=== PATIENT | male | born 2000 | race Caucasian/White ===

== ENCOUNTER 2020-10-03 02:17 | Emergency (ER) | payer OTHER ==
--- OUTSIDE RECORDS SUMMARY | 2020-10-03 02:19 | XMS REPORT | Continuity of Care Document ---
:2000 Author Organization [facility] t Address [address] [place] [address] Care Team Providers Name Role Phone Provider, Urgent Care Attending Clinician Unavailable Doctor Unassigned, Name Attending Clinician Unavailable Lab, Fam Pob I Attending Clinician Unavailable Anene INVENTORY CONTROLLER Attending Clinician Pob1, Care Clinic Attending Clinician Unavailable Problems This patient has no known problems. Allergies, Adverse Reactions, Alerts This patient has no known allergies or adverse reactions. Medications This patient has no known medications. Procedures This patient has no known procedures. Encounters Start End Encounter Admission Attending Care Care Encounter Source Date/Time Date/Time Type Type Clinicians Facility Department ID 2020-07-16 2020-07-16 Urgent Provider, [facility] [id number] 12:11:38 13:01:19 Care [facility] [id number] Care [place] [id number] Professio [phone] nal [address] 2020-07-16 2020-07-16 Orders Doctor ZULEMA [id number] 00:00:00 00:00:00 Only Unassigned, STEPHANY [id number] [employer] [id number] 2020-06-10 2020-06-10 Laboratory Lab, [facility] [id number] 09:51:59 10:11:59 Only Fam Pob I Health [id number] [place] [phone] [facility] Office [address] One 2019-11-21 2019-11-21 Telephone Mable [facility] [id number] 00:00:00 00:00:00 [facility] [id number] [place] [id number] Professio [phone] nal [address] 2019-11-20 2019-11-20 Urgent Provider, [facility] [id number] 09:12:16 10:31:36 [facility] [id number] Care [place] [phone] [facility] Office [address] 2019-11-20 2019-11-20 [employer] Machine Tender Lab, [facility] [id number] 10:07:37 10:22:37 Visit Fam Pob I Health [id number] [place] [phone] [facility] Office [address] One 2019-11-20 2019-11-20 Letter Mable [facility] [id number] 00:00:00 00:00:00 (Out) [facility] [id number] [place] [phone] [facility] [address] One 2019-06-21 2019-06-21 Urgent Pob1, Acute [facility] [id number] 16:52:25 17:06:51 Care [facility] [id number] [place] [id number] Professio [phone] [place] [address] [address] Results This patient has no known results.
[2020-10-03 06:42] LABS: Barbiturates NEGATIVE (NEGATIVE); Benzodiazepines NEGATIVE (NEGATIVE); Cocaine NEGATIVE (NEGATIVE); METHAMPHETAM NEGATIVE (NEGATIVE); Methadone NEGATIVE (NEGATIVE); Opiates NEGATIVE (NEGATIVE); Phencyclidine NEGATIVE (NEGATIVE); THC Cannibis POSITIVE (NEGATIVE)
--- NOTE | 2020-10-03 07:09 | EDPHYS ---
Physician Documentation [facility] Name: Cuba Artis Age: 20 yrs Sex: Male : 2000 Arrival Date: 10/03/2020 Time: 02: Bed 9 Private MD: ED Physician Ravi Maldonado HPI: 10/03 05:57 This 20 yrs old Male presents to ER via Ambulatory with complaints of Seizure.pkl 05:57 The patient presents after having a single isolated seizure, that lasted 2 minute(s), pkl the episode(s) was witnessed, by a significant other. Character of seizure(s): Loss of consciousness: the patient did not lose consciousness, Motor activity: generalized. Historical: - Allergies: 02:39 SHELLFISH; wg 02:39 shrimp; wg - Home Meds: 02:39 None [Active]; wg - PMHx: 02:39 ADD/ADHD; Seizure; wg - Immunization history:: Adult Immunizations Client reports having NOT received the Covid vaccine. - Social history:: Smoking status: Patient reports the use of cigarette tobacco products, denies chronic smoking, but will smoke occasionally, Reported history of juuling and/or vaping. Patient uses alcohol, only on a social basis. caffeine, Patient/guardian denies using street drugs, IV drugs, The patient lives with spouse, No barriers to communication noted. - Family history:: not pertinent. - Code Status:: Full code. - History obtained from: significant other. - Coronavirus screen:: The patient has NOT traveled to [place] in the past 14 days. The patient has NOT had contact with known/suspected case of Coronavirus?. - Ebola Screening: : Patient negative for fever greater than or equal to 101.5 degrees Fahrenheit, and additional compatible Ebola Virus Disease symptoms Patient denies exposure to infectious person Patient denies travel to an Ebola-affected area in the 21 days before illness onset No symptoms or risks identified at this time. ROS: 05:57 Eyes: Negative for injury, pain, redness, and discharge, ENT: Negative for injury, pkl pain, and discharge, Neck: Negative for injury, pain, and swelling, Cardiovascular: Negative for chest pain, palpitations, and edema, Respiratory: Negative for shortness of breath, cough, wheezing, and pleuritic chest pain, Abdomen/GI: Negative for abdominal pain, nausea, vomiting, diarrhea, and constipation, Back: Negative for injury and pain, : Negative for injury, bleeding, discharge, and swelling, MS/Extremity: Negative for injury and deformity, Skin: Negative for injury, rash, and discoloration. 05:57 Neuro: Positive for seizure activity. Exam: 05:57 Head/Face: Normocephalic, atraumatic. Eyes: Pupils equal round and reactive to light, pkl extra-ocular motions intact. Lids and lashes normal. Conjunctiva and sclera are non-icteric and not injected. Cornea within normal limits. Periorbital areas with no swelling, redness, or edema. ENT: Nares patent. No nasal discharge, no septal abnormalities noted. Tympanic membranes are normal and external auditory canals are clear. Oropharynx with no redness, swelling, or masses, exudates, or evidence of obstruction, uvula midline. Mucous membranes moist. Neck: Trachea midline, no thyromegaly or masses palpated, and no cervical lymphadenopathy. Supple, full range of motion without nuchal rigidity, or vertebral point tenderness. No Meningismus. Chest/axilla: Normal chest wall appearance and motion. Nontender with no deformity. No lesions are appreciated. Cardiovascular: Regular rate and rhythm with a normal S1 and S2. No gallops, murmurs, or rubs. Normal PMI, no JVD. No pulse deficits. Respiratory: Lungs have equal breath sounds bilaterally, clear to auscultation and percussion. No rales, rhonchi or wheezes noted. No increased work of breathing, no retractions or nasal flaring. Abdomen/GI: Soft, non-tender, with normal bowel sounds. No distension or tympany. No guarding or rebound. No evidence of tenderness throughout. Back: No spinal tenderness. No costovertebral tenderness. Full range of motion. Skin: Warm, dry with normal turgor. Normal color with no rashes, no lesions, and no evidence of cellulitis. MS/ Extremity: Pulses equal, no cyanosis. Neurovascular intact. Full, normal range of motion. Neuro: Awake and alert, GCS 15, oriented to person, place, time, and situation. Cranial nerves II-XII grossly intact. Motor strength 5/5 in all extremities. Sensory grossly intact. Cerebellar exam normal. Normal gait. Vital Signs: 02:32 BP 140 / 82; Pulse 88; Resp 18; Temp 98.1; Pulse Ox 100% on R/A; Weight 86.18 kg; wg Height 5 ft. 8 in. (172.72 cm); Pain 0/10; 06:14 BP 159 / 90; Pulse 86; Resp 18; Pulse Ox 99% ; Pain 0/10; sh9 02:32 Body Mass Index 28.89 (86.18 kg, 172.72 cm) wg Ritesh Coma Score: 02:39 Eye Response: spontaneous(4). Verbal Response: oriented(5). Motor Response: obeys wg commands(6). Total: 15. MDM: 05:23 Patient medically screened. pkl 07:05 Data reviewed: vital signs, nurses notes, lab test result(s), radiologic studies, CT pkl scan. ED course: Discussed lab and CT Scan results with patient. Advised to follow up Dr. Cross ( Neurologist ) in 2 to 3 days. Patient understood instructions. 10/03 05:32 Order name: UDS; Complete Time: 07:05 pkl 10/03 05:32 Order name: ETOH Level; Complete Time: 07:05 pkl 10/03 05:32 Order name: CT Head Brain wo Cont pkl Administered Medications: No medications were administered Disposition Summary: 10/03/20 07:08 Discharge Ordered Location: Home pkl Problem: new pkl Symptoms: have improved pkl Condition: Stable pkl Diagnosis - Seizures pkl Followup: pkl - With: Ha Cross MD - When: 2 - 3 days - Reason: Re-evaluation by your physician Discharge Instructions: - Discharge Summary Sheet pkl Forms: - Work release form pkl - Medication Reconciliation Form pkl - Thank You Letter pkl - Antibiotic Education pkl - Prescription Opioid Use pkl Signatures: Dispatcher [employer] EDRavi Clark MD MD pkl Chip Wynne wg
--- NOTE | 2020-10-03 07:09 | ER ---
Nurse's Notes [facility] Name: Cuba Artis Age: 20 yrs Sex: Male : 2000 Arrival Date: 10/03/2020 Time: : Bed 9 Private MD: Diagnosis: Seizures Presentation: 10/03 02:32 Chief complaint: Patient states: Pt and significant other state pt had a seizure around wg 0045. Described as tonic/clonic lasting about 2 mins. Pt has had one seizure in the past that he states was drug related. Pt states he has been drinking several [employer] drinks per day and last one was at 2200. Pt's significant other states they called EMS and pt was evaluated but refused transport. Pt states he feels well other than some slight nausea and concern as to the reason for the seizure. Pt denies losing continence of bowel or bladder. Pt denies any illegal substance abuse other than marijuana/vape daily. Coronavirus screen: Client denies travel out of the [place] in the last 14 days. At this time, the client does not indicate any symptoms associated with coronavirus-19. Ebola Screen: Patient negative for fever greater than or equal to 101.5 degrees Fahrenheit, and additional compatible Ebola Virus Disease symptoms Patient denies exposure to infectious person. Patient denies travel to an Ebola-affected area in the 21 days before illness onset. No symptoms or risks identified at this time. Initial Sepsis Screen: Does the patient meet any 2 criteria? No. Patient's initial sepsis screen is negative. Does the patient have a suspected source of infection? No. Patient's initial sepsis screen is negative. Risk Assessment: Do you want to hurt yourself or someone else? Patient reports no desire to harm self or others. Onset of symptoms was October 03, 2020 at 00:45. Care prior to arrival: None. Activity prior to arrival: seizure. 02:32 Method Of Arrival: Ambulatory 02:32 Acuity: DEAN 3 wg Triage Assessment: 02:39 General: Appears in no apparent distress. comfortable, Behavior is calm, cooperative, wg appropriate for age. Pain: Denies pain. EENT: No deficits noted. Neuro: No deficits noted. Cardiovascular: No deficits noted. Respiratory: No deficits noted. GI: No deficits noted. : No deficits noted. Derm: No deficits noted. Musculoskeletal: No deficits noted. Historical: - Allergies: 02:39 SHELLFISH; wg 02:39 shrimp; wg - Home Meds: 02:39 None [Active]; wg - PMHx: 02:39 ADD/ADHD; Seizure; wg - Immunization history:: Adult Immunizations Client reports having NOT received the Covid vaccine. - Social history:: Smoking status: Patient reports the use of cigarette tobacco products, denies chronic smoking, but will smoke occasionally, Reported history of juuling and/or vaping. Patient uses alcohol, only on a social basis. caffeine, Patient/guardian denies using street drugs, IV drugs, The patient lives with spouse, No barriers to communication noted. - Family history:: not pertinent. - Code Status:: Full code. - History obtained from: significant other. - Coronavirus screen:: The patient has NOT traveled to [place] in the past 14 days. The patient has NOT had contact with known/suspected case of Coronavirus?. - Ebola Screening: : Patient negative for fever greater than or equal to 101.5 degrees Fahrenheit, and additional compatible Ebola Virus Disease symptoms Patient denies exposure to infectious person Patient denies travel to an Ebola-affected area in the 21 days before illness onset No symptoms or risks identified at this time. Screenin:17 Abuse screen: Denies threats or abuse. Denies injuries from another. Nutritional sh9 screening: No deficits noted. Tuberculosis screening: No symptoms or risk factors identified. Fall Risk None identified. Assessment: 06:15 General: Appears in no apparent distress. Behavior is calm, cooperative. Pain: Denies sh9 pain. Neuro: No deficits noted. Seizure activity reported prior to arrival. Type of seizure: tonic-clonic seizure. Seizure lasted approximately 2 minutes. Cardiovascular: No deficits noted. Cardiovascular: Denies chest pain. Respiratory: No deficits noted. GI: No deficits noted. : No deficits noted. EENT: No deficits noted. Derm: No deficits noted. Musculoskeletal: No deficits noted. Vital Signs: 02:32 BP 140 / 82; Pulse 88; Resp 18; Temp 98.1; Pulse Ox 100% on R/A; Weight 86.18 kg; wg Height 5 ft. 8 in. (172.72 cm); Pain 0/10; 06:14 BP 159 / 90; Pulse 86; Resp 18; Pulse Ox 99% ; Pain 0/10; sh9 02:32 Body Mass Index 28.89 (86.18 kg, 172.72 cm) Randolph Coma Score: 02:39 Eye Response: spontaneous(4). Verbal Response: oriented(5). Motor Response: obeys commands(6). Total: 15. ED Course: 02:22 Patient arrived in ED. bp1 02:39 Triage completed. wg 02:39 Arm band placed on left wrist. wg 05:23 Ravi Maldonado MD is Attending Physician. pkl 05:47 Tiffanie Arias, RN is Primary Nurse. sh9 06:03 CT Head Brain wo Cont In Process Unspecified. EDMS 06:14 ETOH Level Sent. sh9 06:17 Patient has correct armband on for positive identification. Bed in low position. Call 9 light in reach. 06:17 Seizure precautions initiated. sh9 07:08 Ha Cross MD is Referral Physician. pkl 07:36 No provider procedures requiring assistance completed. IV discontinued, intact, jl7 bleeding controlled, No redness/swelling at site. Pressure dressing applied. Administered Medications: No medications were administered Outcome: 07:08 Discharge ordered by . pkl 07:36 Discharged to home ambulatory. jl7 07:36 Condition: stable 07:36 Discharge instructions given to patient, significant other, Instructed on discharge instructions, follow up and referral plans. Demonstrated understanding of instructions, follow-up care. 07:37 Patient left the ED. jl7 Signatures: Dispatcher [employer] EDMS Ravi Maldonado MD MD pkTai Duque RN RN jl7 Janine Mireles bp1 Tiffanie Arias RN RN sh9 Chip Wynne
[2020-10-03 07:42] VITALS: TEMP 98.1
[2020-10-03 07:43] VITALS: BP 159/90; O2SAT 99
--- NOTE | 2020-10-03 10:46 | RAD REPORT ---
EXAM DESCRIPTION: CT Head Without Intravenous Contrast CLINICAL HISTORY: The patient is 20 years old and is Male; SEIZURE TECHNIQUE: Axial computed tomography images of the head/brain without intravenous contrast. Sagitt al and coronal reformatted images were created and reviewed. This CT exam was performed using one o r more of the following dose reduction techniques: automated exposure control, adjustment of the mA and/or kV according to patient size, and/or use of iterative reconstruction technique. COMPARISON: No relevant prior studies available. FINDINGS: Brain: Unremarkable. No hemorrhage. No significant white matter disease. No edema. Ventricles: Unremarkable. No ventriculomegaly. Bones/joints: Unremarkable. No acute fracture. Soft tissues: Unremarkable. Sinuses: Unremarkable as visualized. Mastoid air cells: Unremarkable as visualized. No mastoid effusion. IMPRESSION: No acute intracranial abnormality. Electronically signed by: Ignacio Rivas MD 10/03/2020 6:16 AM CDT Due to temporary technical issues with the PACS/Fluency reporting system, reports are being signed by the in house radiologist without review as a courtesy to ensure prompt reporting. The interpreting r adiologist is fully responsible for the content of the report.
== END 2020-10-03 07:37 | disposition home or self-care (01) ==
LOC: ER 02:17
DX: R56.9 Unspecified convulsions (principal); F17.210 Nicotine dependence, cigarettes, uncomplicated; Z91.013 Allergy to seafood
CPT/HCPCS: 36415; 70450; 80307; 80320; 99283

== ENCOUNTER 2021-08-31 10:39 | Emergency (ER) | payer OTHER, SELFPAY ==
--- OUTSIDE RECORDS SUMMARY | 2021-08-31 10:42 | XMS REPORT | Continuity of Care Document ---
:2000 Author Organization [facility] t Address [address] [place] [address] [address] [place] [address] Care Team Providers Name Role Phone CELENA, A Primary Care Physician Unavailable ROSIBEL Attending Clinician Unavailable Rosibel HOPPER Attending Clinician MORA Attending Clinician Unavailable Provider, Urgent Care Attending Clinician Unavailable Doctor Unassigned, Name Attending Clinician Unavailable Lab, Fam Pob I Attending Clinician Unavailable Anene LEAD CAREGIVER Attending Clinician Pob1, Care Clinic Attending Clinician Unavailable MORA Admitting Clinician Unavailable Payers Payer Name Policy Type Policy Number Effective Date Expiration Date [facility] [id number] 2019 PPO/POS 00:00:00 [facility] [id number] 2021 00:00:00 Problems Condition Condition Condition Status Onset Resolution Last Treating Co mments Source Name Details Category Date Date Treatment Clinician Date NSTEMI NSTEMI Disease Active Univers (non-ST (non-ST 3-08 ity of elevated elevated 00:00: [place] myocardial myocardial 00 Me dical infarction infarction Br anch ) ) Perianal Perianal Disease Active 2020-02 Unive rs abscess abscess 2-10 ity of 00:00: [place] [address] Medical Branch Obesity Obesity Disease Active 2020-02 Univers (BMI (BMI 2-10 ity of 30-39.9) 30-39.9) 00:00: [place] [address] Medical Branch Attention Attention Disease Active Overview: Univers deficit deficit 3-01 Formattin ity o f hyperactiv hyperactiv 00:00: g of this [place] ity ity 00 note Medical disorder disorder might be Bran ch (ADHD) (ADHD) different from the original. ICD10 Diagnosis Term Chief Load Dispatcher Utility Allergies, Adverse Reactions, Alerts Allergy Allergy Status Severity Reaction(s) Onset Inactive Treating Comm ents Source Name Type Date Date Clinician Stephaniefis Drug Active Rash 2020-02 Univers h Allergy 2-20 ity of Derived 00:00: [address] Branch SHELLFIS DRUG Active Rash 2020-02 Univers H INGREDI 2-20 ity of DERIVED 00:00: [address] Social History Social Habit Start Date Stop Date Quantity Comments Source History of tobacco Cigarette Smoker University of use [facility] History SDOH University o f Alcohol Frequency Formerly [facility] Branch History SDOH University o f Alcohol Std Drinks [facility] History SDPA University o f Alcohol Binge [facility] Exposure to 2021-05-30 2021-06-09 Not sure University SARS-CoV-2 (event) 00:00:00 11:17:00 [facility] Alcohol intake 2021-06-09 2021-06-09 Current drinker Unive rsity of 00:00:00 00:00:00 of alcohol [facility] (finding) [place] Alcohol Comment 2020-11-06 2020-11-06 once per month Unive rsity of 00:00:00 00:00:00 [facility] Tobacco use and 2019-06-21 2019-06-21 Never used Universit y of exposure 00:00:00 00:00:00 [facility] Cigarettes smoked 2019-06-21 2019-06-21 Univers ity of current (pack per 00:00:00 00:00:00 [facility] ) - Reported Branch Cigarette 2019-06-21 2019-06-21 University of pack-years 00:00:00 00:00:00 [facility] Sex Ass[birth year] At [birth year] Universit y of 00:00:00 00:00:00 [facility] Smoking Status Start Date Stop Date Source Current every day smoker 2019-06-21 00:00:00 Uni versity of [facility] Medications Ordered Filled Start Stop Current Ordering Indication Dosage Frequency Signature Comments Components Source Medication Medication Date Date Medication? Clinician (SIG) Name Name OXcarbazepi Yes [id number] 600mg Take 2 Univers ne 300 mg 5-02 tablets by ity of tablet 00:00: mouth 2 [place] 00 (two) Medical times [place] daily. OXcarbazepi 2021-0 2021- No 600mg Take 2 Un malina ne 300 mg 4-26 05-02 tablets by ity of tablet 00:00: 00:00 mouth 2 [place] 00 :00 (two) Medical times [place] daily. Immunizations Ordered Immunization Filled Immunization Date Status Commen ts Source Name Name Meningococcal B, 2016-01-28 Completed Universi ty of Recombinant 00:00:00 [facility] Influenza Virus 2016-01-28 Completed Universit y of Vaccine Quad IM 3+ 00:00:00 [facility] Meningococcal B, 2015-08-06 Completed Universi ty of Recombinant 00:00:00 [facility] Meningococcal B, 2015-05-16 Completed Universi ty of Recombinant 00:00:00 [facility] Meningococcal 2014-10-25 Completed University of Polysaccharide 00:00:00 [place] [facility] (groups A, C, Y and Branc h W-135) conjugate vaccine (MCV4P) Influenza Virus 2013-11-20 Completed Universit y of Vaccine Quad Nasal 00:00:00 [facility] HPV 2012-07-14 Completed University of 00:00:00 [facility] Influenza Virus 2012-02-23 Completed Universit y of Vaccine (3+ yrs) 00:00:00 [facility] dical Branch HPV 2012-02-23 Completed University of 00:00:00 [facility] HPV 2011 Completed University of 00:00:00 [facility] TDAP 2009-08-06 Completed University of 00:00:00 [facility] Meningococcal 2009-08-06 Completed University of Polysaccharide 00:00:00 [place] [facility] (groups A, C, Y and Branc h W-135) conjugate vaccine (MCV4P) HEPATITIS A 2009-08-06 Completed University of 00:00:00 [facility] HEPATITIS A 2007-05-04 Completed University of 00:00:00 [facility] Varicella 2007-05-04 Completed University of (varivax)(chicken 00:00:00 [place] [facility] pox) Branch DTAP 2002-09-04 Completed University of 00:00:00 [facility] MMR 2002-09-04 Completed University of 00:00:00 [place] [facility] Polio (IPV/OPV) 2002-09-04 Completed Universit y of 00:00:00 [facility] IPV 2002-09-04 Completed University of 00:00:00 [facility] DTAP 1999-12-09 Completed University of 00:00:00 [facility] HIB 4 Dose Schedule 1999-12-09 Completed Unive rsity of 00:00:00 [facility] MMR 1999-08-11 Completed University of 00:00:00 [facility] Varicella 1999-08-11 Completed University of (varivax)(chicken 00:00:00 [facility] edical pox) Branch Hep B, Adol or Pedi 1999-05-05 Completed Unive rsity of Dosage 00:00:00 [facility] Polio (IPV/OPV) 1999-05-05 Completed Universit y of 00:00:00 [facility] IPV 1999-05-05 Completed University of 00:00:00 [facility] DTAP 1999-02-18 Completed University of 00:00:00 [facility] HIB 4 Dose Schedule 1999-02-18 Completed Unive rsity of 00:00:00 [facility] Hep B, Adol or Pedi 1999-02-18 Completed Unive rsity of Dosage 00:00:00 [facility] DTAP 1998 Completed University of 00:00:00 [facility] HIB 4 Dose Schedule 1998 Completed Unive rsity of 00:00:00 [facility] Polio (IPV/OPV) 1998 Completed Universit y of 00:00:00 [facility] IPV 1998 Completed University of 00:00:00 [facility] Polio (IPV/OPV) 1998 Completed Universit y of 00:00:00 [facility] IPV 1998 Completed University of 00:00:00 [facility] DTAP 1998 Completed University of 00:00:00 [facility] HIB 4 Dose Schedule 1998 Completed Unive rsity of 00:00:00 [facility] Hep B, Adol or Pedi 1998 Completed Unive rsity of Dosage 00:00:00 [facility] Vital Signs Vital Name Observation Time Observation Value Comments Source Systolic blood 2021-06-09 16:37:00 125 mm[Hg] Univer sity of pressure [facility] Diastolic blood 2021-06-09 16:37:00 79 mm[Hg] Unive rsity of pressure [facility] Heart rate 2021-06-09 16:37:00 94 /min [facility] Body temperature 2021-06-09 16:37:00 37 [place] Univ ersity of [facility] Body height 2021-06-09 16:37:00 172.7 cm [facility] Body weight 2021-06-09 16:37:00 91.309 kg [facility] BMI 2021-06-09 16:37:00 30.61 kg/m2 [facility] Oxygen saturation in 2021-06-09 16:37:00 97 /min [facility] Arterial blood by [facility] Pulse oximetry Branch Procedures This patient has no known procedures. Encounters Start End Encounter Admission Attending Care Care Encounter Source Date/Time Date/Time Type Type Clinicians Facility Department ID 2021-09-15 2021-09-15 Outpatient Sharon AMAYA [facility] [id number] Univers 14:30:00 14:30:00 [facility] [id number] [facility] 2021-09-15 2021-09-15 [id number] Univers 14:30:00 14:30:00 [facility] 2021-08-25 2021-08-25 Outpatient Sharon A[facility] [id number] Univers 14:30:00 14:30:00 [facility] [id number] [facility] 2021-06-09 2021-06-09 Outpatient Sharon AMAYA [facility] [id number] Univers 12:15:00 12:20:26 [facility] 2021-06-09 2021-06-09 [facility] [id number] Univers 11:30:00 12:12:58 Visit [facility] [id number] ity of CLEAR [id number] Jb HERRON [id number] [facility] 092 Branch OFFICE BUILDING 2021-04-15 2021-04-15 Outpatient U MORGAN [facility] [id number] Univers 09:15:00 19:14:00 BRANDAN hallie [facility] 2020-07-16 2020-07-16 Urgent Provider, [facility] [id number] 12:11:38 13:01:19 [facility] [id number] Care [place] [id number] Professio [phone] [place] [address] Office Building One 2020-07-16 2020-07-16 Orders Doctor ZULEMA [id number] 00:00:00 00:00:00 Only Unassigned, STEPHANY [id number] [facility] [id number] 2020-06-10 2020-06-10 Laboratory Lab, [facility] [id number] 09:51:59 10:11:59 Only Fam Pob I Health [id number] [place] [id number] Professio [phone] [place] [address] Office [address] One 2019-11-21 2019-11-21 Telephone [facility] [id number] 00:00:00 00:00:00 [facility] [id number] [place] [id number] Professio [phone] [place] [address] Office [address] One 2019-11-20 2019-11-20 Urgent Provider, [facility] [id number] 09:12:16 10:31:36 [facility] [id number] Care [place] [id number] Professio [phone] [place] [address] Office [address] One 2019-11-20 2019-11-20 Rental Representative Lab, [facility] [id number] 10:07:37 10:22:37 Visit Fam Pob I Health [id number] [place] [id number] Professio [phone] [place] [address] Office Building One 2019-11-20 2019-11-20 [facility] [id number] 00:00:00 00:00:00 (Out) [facility] [id number] [place] [id number] Professio [phone] [place] 044 Office [facility] 2019-06-21 2019-06-21 Urgent Pob1, Acute [facility] [id number] 16:52:25 17:06:51 [facility] [id number] [place] [id number] Professio [phone] [place] 044 Office Building One Results This patient has no known results.
--- NOTE | 2021-08-31 11:08 | RAD REPORT ---
EXAM DESCRIPTION: RAD - Knee Left 3 View - 08/31/2021 11:02 am CLINICAL HISTORY: PAIN COMPARISON: No comparisons FINDINGS: No acute fracture. No malalignment. No significant focal degenerative changes. IMPRESSION: No acute osseous abnormality involving the left knee.
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
--- NOTE | 2021-08-31 12:45 | ER ---
Nurse's Notes [facility] Name: Cuba Artis Age: 21 yrs Sex: Male : 2000 Arrival Date: 08/31/2021 Time: 10:42 Bed 13 Private MD: Diagnosis: Pain in left knee Presentation: 08/31 10:45 Chief complaint: Patient states: he hyperextended his left knee yesterday at approx ap3 1700. patient states he didn't have much pain yesterday, however today he is having pain and hearing "popping" when he moves his knee. Coronavirus screen: At this time, the client does not indicate any symptoms associated with coronavirus-19. Ebola Screen: No symptoms or risks identified at this time. Initial Sepsis Screen: Does the patient meet any 2 criteria? No. Patient's initial sepsis screen is negative. Does the patient have a suspected source of infection? No. Patient's initial sepsis screen is negative. Risk Assessment: Do you want to hurt yourself or someone else? Patient reports no desire to harm self or others. Onset of symptoms was August 30, 2021 at 17:00. 10:45 Method Of Arrival: Ambulatory ap3 10:45 Acuity: DEAN 4 ap3 Triage Assessment: 10:47 General: Appears in no apparent distress. Behavior is calm, cooperative. Pain: ap3 Complains of pain in left knee. Neuro: Level of Consciousness is awake, alert, obeys commands, Oriented to person, place, time, situation. Cardiovascular: Patient's skin is warm and dry. Respiratory: Airway is patent Respiratory effort is even, unlabored, Respiratory pattern is regular, symmetrical. Musculoskeletal: Reports pain in left knee. Historical: - Allergies: 10:46 SHELLFISH; ap3 10:46 shrimp; ap3 - PMHx: 10:46 ADD/ADHD; Seizure; ap3 - Immunization history:: Client reports having NOT received the Covid vaccine. Last tetanus immunization: up to date. - Social history:: Smoking status: Patient reports the use of cigarette tobacco products, smokes one pack cigarettes per day. Patient uses alcohol, occasionally. Screenin:47 Abuse screen: Denies threats or abuse. Nutritional screening: No deficits noted. ap3 Tuberculosis screening: No symptoms or risk factors identified. 12:52 Fall Risk None identified. ld1 Assessment: 12:52 Reassessment: Patient appears in no apparent distress at this time. Patient is alert, ld1 oriented x 3, equal unlabored respirations, skin warm/dry/pink. See triage assessment. Vital Signs: 10:45 BP 137 / 84; Pulse 94; Resp 17; Temp 98.8; Pulse Ox 100% ; Weight 90.72 kg; Height 5 ap3 ft. 8 in. (172.72 cm); Pain 0/10; 12:52 BP 129 / 86; Pulse 91; Resp 18; Pulse Ox 100% on R/A; ld1 10:45 Body Mass Index 30.41 (90.72 kg, 172.72 cm) ap3 ED Course: 10:42 Patient arrived in ED. as 10:43 Lincoln Early PA is PHCP. cp 10:43 Sofía Fraser is Attending Physician. cp 10:46 Triage completed. ap3 10:48 Arm band placed on right wrist. ap3 10:48 Adult w/ patient. ap3 11:04 XRAY Knee LEFT 3 view In Process Unspecified. EDMS 12:30 Tai Claudio, RN is Primary Nurse. jl7 12:39 Justin Singh MD is Referral Physician. cp 12:52 No provider procedures requiring assistance completed. Patient did not have IV access ld1 during this emergency room visit. Administered Medications: 12:52 Drug: Ibuprofen 800 mg Route: PO; ld1 12:52 Drug: Tylenol 1000 mg Route: PO; ld1 Medication: 12:52 VIS not applicable for this client. ld1 Outcome: 12:44 Discharge ordered by MD. cp 13:08 Discharged to home ambulatory, with crutches, with family. ld1 13:08 Condition: stable 13:08 Discharge instructions given to patient, family, Instructed on discharge instructions, follow up and referral plans. medication usage, Demonstrated understanding of instructions, follow-up care, medications, Prescriptions given X 1. 13:09 Patient left the ED. ld1 Signatures: Dispatcher [employer] EDMS Dilma Butler as Lincoln Early PA PA cp Tai Claudio RN RN jl7 Nathalia Recio RN RN ap3 Mona Rosen RN RN ld1
[2021-08-31] MEDS ORDERED: ACETAMINOPHEN 500 MG TAB ONE (12:52)
[2021-08-31] MEDS ORDERED: IBUPROFEN 400 MG TAB ONE (12:52)
[2021-08-31 13:19] VITALS: TEMP 98.8; O2SAT 100
[2021-08-31 13:21] VITALS: BP 129/86
== END 2021-08-31 13:09 | disposition home or self-care (01) ==
LOC: ER 10:39
DX: M25.562 Pain in left knee (principal); F17.210 Nicotine dependence, cigarettes, uncomplicated; Z91.013 Allergy to seafood
CPT/HCPCS: 99283

== ENCOUNTER 2021-11-03 17:26 | Emergency (ER) | payer BC ==
--- OUTSIDE RECORDS SUMMARY | 2021-11-03 17:32 | XMS REPORT | Continuity of Care Document ---
:[address] [facility] t Address [address] [place] [address] Care Team Providers Name Role Phone CELENAANDREIYOMI Mccartney Primary Care Physician Unavailable FENG GLEASON Attending Clinician Unavailable Feng Gleason MD Attending Clinician Provider, [facility] Attending Clinician Unavailable Doctor Unassigned, [place] Attending Clinician Unavailable Lab, [facility] Pob I Attending Clinician Unavailable Lucie Rizo Attending Clinician Pob1, Acute Care Clinic Attending Clinician Unavailable Payers Payer Name Policy Type Policy Number Effective Date Expiration Date S [facility] [id number] 2021 00:00:00 Problems Condition Condition Condition Status Onset Resolution Last Treating Co mments Source Name Details Category Date Date Treatment Clinician Date NSTEMI NSTEMI Disease Active Univers (non-ST (non-ST 3-08 ity of elevated elevated 00:00: [place] myocardial myocardial 00 Me dical infarction infarction Br anch ) ) Perianal Perianal Disease Active 2020-02 Unive rs abscess abscess 2-10 ity of 00:00: [place] [address] Medical Branch Obesity Obesity Disease Active 2020-02 Univers (BMI (BMI 2-10 ity of 30-39.9) 30-39.9) 00:00: [place] [address] Medical Branch Attention Attention Disease Active Overview: Univers deficit deficit 3-01 Formattin ity o f hyperactiv hyperactiv 00:00: g of this [place] ity ity 00 note Medical disorder disorder might be Bran ch (ADHD) (ADHD) different from the original. 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 Allergies, Adverse Reactions, Alerts Allergy Allergy Status Severity Reaction(s) Onset Inactive Treating Comm ents Source Name Type Date Date Clinician Shellfis Drug Active Rash 2020-02 Univers h Allergy 2-20 ity of Derived 00:00: Medical Branch SHELLFIS DRUG Active Rash 2020-02 Univers H INGREDI 2-20 ity of DERIVED 00:00: [place] [facility] Social History Social Habit Start Date Stop Date Quantity Comments Source History of tobacco Cigarette Smoker University of use [facility] History [facility] o f Alcohol Frequency [facility] History [facility] University o f Alcohol Std Drinks [facility] History [facility] o f Alcohol Binge [facility] Exposure to 2021-09-05 2021-09-15 Not sure University of SARS-CoV-2 (event) 00:00:00 14:38:00 [facility] Tobacco use and 2021-09-15 2021-09-15 Smokeless Universit y of exposure 00:00:00 00:00:00 tobacco non-user [facility] smoked 2021-09-15 2021-09-15 Univers ity of current (pack per 00:00:00 00:00:00 [facility] ) - Reported Branch Cigarette 2021-09-15 2021-09-15 University of pack-years 00:00:00 00:00:00 [facility] Alcohol intake 2021-09-15 2021-09-15 Current drinker Unive rsity of 00:00:00 00:00:00 of alcohol [facility] (finding) [place] Alcohol Comment 2020-11-06 2020-11-06 once per month Unive rsity of 00:00:00 00:00:00 [facility] Sex Ass[birth year] At [birth year] Universit y of 00:00:00 00:00:00 [facility] Smoking Status Start Date Stop Date Source Smokes tobacco daily 2021-09-15 00:00:00 Univers ity of [facility] Medications Ordered Filled Start Stop Current Ordering Indication Dosage Frequency Signature Comments Components Source Medication Medication Date Date Medication? Clinician (SIG) Name Name OXcarbazepi 0 Yes [id number] 600mg Take 2 Univers ne 300 mg 8-08 tablets by ity of tablet 00:00: mouth in [place] 00 the Medical morning Branch and 2 tablets in the evening. diclofenac 0 Yes 75mg Take 75 mg U nivers 75 mg EC 7-24 by mouth ity of tablet 00:00: in the [place] 00 morning Medical and 75 mg Branch in the evening. OXcarbazepi 2021-0 2021- No [id number] 600mg Take 2 Univers ne 300 mg 5-02 08-08 tablets by ity of tablet 00:00: 00:00 mouth 2 [place] 00 :00 (two) Medical times Branch daily. Immunizations Ordered Immunization Filled Immunization Date Status Commen ts Source Name Name Meningococcal B, 2016-01-28 Completed Universi ty of Recombinant 00:00:00 [facility] Influenza Virus 2016-01-28 Completed Universit y of Vaccine Quad IM 3+ 00:00:00 [facility] Meningococcal B, 2015-08-06 Completed Universi ty of Recombinant 00:00:00 [facility] Meningococcal B, 2015-05-16 Completed Universi ty of Recombinant 00:00:00 [facility] Meningococcal 2014-10-25 Completed University of Polysaccharide 00:00:00 [place] Medi danisha (groups A, C, Y and Branc h W-135) conjugate vaccine (MCV4P) Influenza Virus 2013-11-20 Completed Universit y of Vaccine Quad Nasal 00:00:00 [facility] HPV 2012-07-14 Completed University of 00:00:00 [facility] Influenza Virus 2012-02-23 Completed Universit y of Vaccine (3+ yrs) 00:00:00 [facility] dical Branch HPV 2012-02-23 Completed University of 00:00:00 [facility] HPV 2011 Completed University of 00:00:00 [facility] TDAP 2009-08-06 Completed University of 00:00:00 [facility] Meningococcal 2009-08-06 Completed University of Polysaccharide 00:00:00 [place] Medi danisha (groups A, C, Y and Branc h W-135) conjugate vaccine (MCV4P) HEPATITIS A 2009-08-06 Completed University of 00:00:00 [facility] HEPATITIS A 2007-05-04 Completed University of 00:00:00 [facility] Varicella 2007-05-04 Completed University of (varivax)(chicken 00:00:00 [place] M edical pox) Branch DTAP 2002-09-04 Completed University of 00:00:00 [facility] MMR 2002-09-04 Completed University of 00:00:00 [facility] Polio (IPV/OPV) 2002-09-04 Completed Universit y of 00:00:00 [facility] IPV 2002-09-04 Completed University of 00:00:00 [facility] DTAP 1999-12-09 Completed University of 00:00:00 [facility] HIB 4 Dose Schedule 1999-12-09 Completed Unive rsity of 00:00:00 [facility] MMR 1999-08-11 Completed University of 00:00:00 [facility] Varicella 1999-08-11 Completed University of (varivax)(chicken 00:00:00 [place] M edical pox) Branch Hep B, Adol or Pedi 1999-05-05 Completed Unive rsity of Dosage 00:00:00 [facility] Polio (IPV/OPV) 1999-05-05 Completed Universit y of 00:00:00 [facility] IPV 1999-05-05 Completed University of 00:00:00 [facility] DTAP 1999-02-18 Completed University of 00:00:00 [facility] HIB 4 Dose Schedule 1999-02-18 Completed Unive rsity of 00:00:00 [facility] Hep B, Adol or Pedi 1999-02-18 Completed Unive rsity of Dosage 00:00:00 [facility] DTAP 1998 Completed University of 00:00:00 [facility] HIB 4 Dose Schedule 1998 Completed Unive rsity of 00:00:00 [facility] Polio (IPV/OPV) 1998 Completed Universit y of 00:00:00 [facility] IPV 1998 Completed University of 00:00:00 [facility] DTAP 1998 Completed University of 00:00:00 [facility] HIB 4 Dose Schedule 1998 Completed Unive rsity of 00:00:00 [facility] Polio (IPV/OPV) 1998 Completed Universit y of 00:00:00 [facility] IPV 1998 Completed University of 00:00:00 [facility] Hep B, Adol or Pedi 1998 Completed Unive rsity of Dosage 00:00:00 [facility] Vital Signs Vital Name Observation Time Observation Value Comments Source Systolic blood 2021-09-15 19:49:00 148 mm[Hg] Univer sity [facility] Diastolic blood 2021-09-15 19:49:00 80 mm[Hg] Unive rsity [facility] Heart rate 2021-09-15 19:49:00 95 /min [facility] Body height 2021-09-15 19:49:00 172.7 cm [facility] Body weight 2021-09-15 19:49:00 92.625 kg [facility] BMI 2021-09-15 19:49:00 31.05 kg/m2 [facility] Oxygen saturation 2021-09-15 19:49:00 96 /min [facility] in Arterial blood [facility] Br anch by Pulse oximetry Procedures This patient has no known procedures. Encounters Start End Encounter Admission Attending Care Care Encounter Source Date/Time Date/Time Type Type Clinicians Facility Department ID 2021-09-15 2021-09-15 Outpatient R JOSE LUIS [facility] [id number] Univers 15:30:00 15:33:26 FENG [facility] 2021-09-15 2021-09-15 Office Li [facility] [id number] Univers 14:30:00 15:18:37 Visit [facility] [id number] ity of CLEAR [id number] Jb HERRON [id number] [place] [id number] Branch OFFICE BUILDING 2020-07-16 2020-07-16 Urgent Provider, [facility] [id number] 12:11:38 13:01:19 Care [facility] Urgent Health [id number] Care [place] [id number] Professio [phone] nal 044 Office Building One 2020-07-16 2020-07-16 Orders Doctor ZULEMA [id number] 00:00:00 00:00:00 Only Unassigned, STEPHANY [id number] [place] [facility] [id number] 2020-06-10 2020-06-10 Laboratory Lab, [facility] [id number] 09:51:59 10:11:59 Only Fam Pob I Health [id number] [place] [id number] Professio [phone] nal 044 Office Building One 2019-11-21 2019-11-21 [facility] [id number] 00:00:00 00:00:00 [facility] [id number] [place] [id number] Professio [phone] nal 044 Office Building One 2019-11-20 2019-11-20 Urgent Provider, [facility] [id number] 09:12:16 10:31:36 Care Ang Urgent Health [id number] Care [place] [id number] Professio [phone] nal [facility] Office Building One 2019-11-20 2019-11-20 Sales Order Processor Lab, [facility] [id number] 10:07:37 10:22:37 Visit Fam Pob I Health [id number] [place] [id number] Professio [phone] nal [facility] Office Building One 2019-11-20 2019-11-20 Letter [facility] [id number] 00:00:00 00:00:00 (Out) [facility] [id number] [place] [id number] Professio [phone] nal 044 Office Building One 2019-06-21 2019-06-21 Urgent Pob1, Acute [facility] [id number] 16:52:25 17:06:51 Care [facility] [id number] [place] [id number] Professio [phone] nal [facility] Office Building One Results This patient has no known results.
--- NOTE | 2021-11-03 18:50 | ER ---
Nurse's Notes [facility] [place] [facility] Name: Cuba Artis Age: 21 yrs Sex: Male : 2000 Arrival Date: 11/03/2021 Time: 17:31 Bed 12 Private MD: Diagnosis: Streptococcal pharyngitis Presentation: 11/03 18:14 Chief complaint: Patient states: Sore throat, fever, body aches since this morning. jl7 Coronavirus screen: Vaccine status: Patient reports being unvaccinated. fever, sore throat, Client presents with at least one sign or symptom that may indicate coronavirus-19. Standard/surgical mask placed on the client. Ebola Screen: No symptoms or risks identified at this time. Initial Sepsis Screen: Does the patient meet any 2 criteria? No. Patient's initial sepsis screen is negative. Does the patient have a suspected source of infection? No. Patient's initial sepsis screen is negative. Risk Assessment: Do you want to hurt yourself or someone else? Patient reports no desire to harm self or others. Onset of symptoms was November 03, 2021. 18:14 Method Of Arrival: Ambulatory [facility] 18:14 Acuity: DEAN 4 jl7 Triage Assessment: 18:17 General: Appears in no apparent distress. uncomfortable, Behavior is calm, cooperative, jl7 appropriate for age. Pain: Complains of pain in sore throat Pain currently is 7 out of 10 on a pain scale. EENT: Throat is reddened. Historical: - Allergies: 18:17 SHELLFISH; jl7 18:17 shrimp; jl7 - Home Meds: 18:17 oxcarbazepine oral [Active]; jl7 - PMHx: 18:17 ADD/ADHD; Seizure; jl7 - Immunization history:: Client reports having NOT received the Covid vaccine. - Social history:: Smoking status: Patient reports the use of cigarette tobacco products, smokes one pack cigarettes per day. Vital Signs: 18:14 BP 138 / 88; Pulse 94; Resp 17; Temp 99.5; Pulse Ox 99% ; Weight 86.64 kg; Height 5 ft. jl7 8 in. (172.72 cm); Pain 7/10; 18:14 Body Mass Index 29.04 (86.64 kg, 172.72 cm) jl7 ED Course: 17:31 Patient arrived in ED. rg4 17:32 [facility]C [facility] snw 17:32 Ej Licona DO is Attending Physician. snw 18:17 Triage completed. jl7 18:17 Arm band placed on right wrist. jl7 18:31 Janine Ford, RN is Primary Nurse. bm7 Administered Medications: 19:07 Drug: Pepcid (famotidine) 20 mg Route: PO; iw 19:07 Drug: ZyrTEC - Cetirizine 10 mg Route: PO; iw 19:07 Drug: GI Cocktail without - (Maalox Suspension 30 ml, Lidocaine Liquid 2 % 15 iw ml) Route: PO; 19:07 Drug: Zithromax (azithromycin) 500 mg Route: PO; iw Outcome: 18:50 Discharge ordered by MD. snw 19:07 Patient left the ED. iw Signatures: Mirna Lazo FNP-C APPLICATION SUPPORT ANALYST-Csnw Cadence Saunders, RN RN iw Madeline Harrison rg4 Tai Claudio RN RN jl7 Janine Ford, RN RN 7
--- NOTE | 2021-11-03 18:50 | EDPHYS ---
Physician Documentation [facility] Name: Cuba Artis Age: 21 yrs Sex: Male : 2000 Arrival Date: 11/03/2021 Time: 17:31 Bed 12 Private MD: ED Physician Ej Licona HPI: 11/03 18:46 This 21 yrs old Male presents to ER via Ambulatory with complaints of Sore Throat, snw Cough. 18:46 The patient presents with sore throat. The patient describes throat pain as raw, snw scratchy. The patient describes throat pain as constant. Onset: The symptoms/episode began/occurred suddenly, last night. Severity of symptoms: At their worst the symptoms were moderate. Associated signs and symptoms: Pertinent positives: fever, flu-like symptoms, rhinorrhea, Sore throat. It is unknown whether or not the patient has had similar symptoms in the past. It is unknown whether or not the patient has recently seen a physician. Historical: - Allergies: 18:17 SHELLFISH; jl7 18:17 shrimp; jl7 - Home Meds: 18:17 oxcarbazepine oral [Active]; jl7 - PMHx: 18:17 ADD/ADHD; Seizure; jl7 - Immunization history:: Client reports having NOT received the Covid vaccine. - Social history:: Smoking status: Patient reports the use of cigarette tobacco products, smokes one pack cigarettes per day. ROS: 18:45 Constitutional: Negative for fever, chills, and weight loss, Eyes: Negative for injury, snw pain, redness, and discharge, Neck: Negative for injury, pain, and swelling, Cardiovascular: Negative for chest pain, palpitations, and edema, Respiratory: Negative for shortness of breath, cough, wheezing, and pleuritic chest pain, Abdomen/GI: Negative for abdominal pain, nausea, vomiting, diarrhea, and constipation, Back: Negative for injury and pain, : Negative for injury, bleeding, discharge, and swelling, MS/Extremity: Negative for injury and deformity, Skin: Negative for injury, rash, and discoloration, Neuro: Negative for headache, weakness, numbness, tingling, and seizure. 18:45 ENT: Positive for sore throat. Exam: 18:45 Constitutional: This is a well developed, well nourished patient who is awake, alert, snw and in no acute distress. Head/Face: Normocephalic, atraumatic. Eyes: Pupils equal round and reactive to light, extra-ocular motions intact. Lids and lashes normal. Conjunctiva and sclera are non-icteric and not injected. Cornea within normal limits. Periorbital areas with no swelling, redness, or edema. Neck: Trachea midline, no thyromegaly or masses palpated, and no cervical lymphadenopathy. Supple, full range of motion without nuchal rigidity, or vertebral point tenderness. No Meningismus. Chest/axilla: Normal chest wall appearance and motion. Nontender with no deformity. No lesions are appreciated. Cardiovascular: Regular rate and rhythm with a normal S1 and S2. No gallops, murmurs, or rubs. Normal PMI, no JVD. No pulse deficits. Respiratory: Lungs have equal breath sounds bilaterally, clear to auscultation and percussion. No rales, rhonchi or wheezes noted. No increased work of breathing, no retractions or nasal flaring. Abdomen/GI: Soft, non-tender, with normal bowel sounds. No distension or tympany. No guarding or rebound. No evidence of tenderness throughout. Back: No spinal tenderness. No costovertebral tenderness. Full range of motion. Skin: Warm, dry with normal turgor. Normal color with no rashes, no lesions, and no evidence of cellulitis. MS/ Extremity: Pulses equal, no cyanosis. Neurovascular intact. Full, normal range of motion. Neuro: Awake and alert, GCS 15, oriented to person, place, time, and situation. Cranial nerves II-XII grossly intact. Motor strength 5/5 in all extremities. Sensory grossly intact. Cerebellar exam normal. Normal gait. 18:45 ENT: External ear(s): are unremarkable, Ear canal(s): are normal, TM's: are normal, Nose: Nasal mucosa: edematous, Mouth: is normal, Posterior pharynx: erythema, that is moderate, Voice: is normal. Vital Signs: 18:14 BP 138 / 88; Pulse 94; Resp 17; Temp 99.5; Pulse Ox 99% ; Weight 86.64 kg; Height 5 ft. jl7 8 in. (172.72 cm); Pain 7/10; 18:14 Body Mass Index 29.04 (86.64 kg, 172.72 cm) [facility] MDM: 18:35 Patient medically screened. snw 18:51 Data reviewed: vital signs, nurses notes. Data interpreted: Pulse oximetry: on room air snw is 99 %. Interpretation: normal. Counseling: I had a detailed discussion with the patient and/or guardian regarding: the historical points, exam findings, and any diagnostic results supporting the discharge/admit diagnosis, lab results, the need for outpatient follow up, to return to the emergency department if symptoms worsen or persist or if there are any questions or concerns that arise at home. Special discussion: Based on the history and exam findings, there is no indication for further emergent testing or inpatient evaluation. I discussed with the patient/guardian the need to see the primary care provider for further evaluation of the symptoms. 11/03 18:20 Order name: COVID-19 SARS RT PCR (Document "Date of Onset" if Symptomatic) [facility] 11/03 18:20 Order name: Flu [facility] 11/03 18:20 Order name: Strep; Complete Time: 18:49 [facility] Administered Medications: 19:07 Drug: Pepcid (famotidine) 20 mg Route: PO; iw 19:07 Drug: ZyrTEC - Cetirizine 10 mg Route: PO; iw 19:07 Drug: GI Cocktail without - (Maalox Suspension 30 ml, Lidocaine Liquid 2 % 15 iw ml) Route: PO; 19:07 Drug: Zithromax (azithromycin) 500 mg Route: PO; iw Disposition: 11/04 08:43 Co-signature as Attending Physician, Ej JESUS was immediately available on-site ms3 in the Emergency Department for consultation in the care of the patient. . Disposition Summary: 11/03/21 18:50 Discharge Ordered Location: Home snw Condition: Stable snw Diagnosis - Streptococcal pharyngitis snw Followup: snw - With: Private Physician - When: 2 - 3 days - Reason: Recheck today's complaints, Continuance of care, Re-evaluation by your physician Followup: snw - With: Emergency Department - When: As needed - Reason: Worsening of condition Discharge Instructions: - Discharge Summary Sheet snw - Fever, Adult snw - Strep Throat, Adult snw - Rehydration, Adult snw Forms: - Medication Reconciliation Form snw - Thank You Letter snw - Antibiotic Education snw - Prescription Opioid Use snw - Work release form snw Prescriptions: - Zyrtec 10 mg Oral Tablet - take 1 tablet by ORAL route once daily As needed; 20 tablet; Refills: 0, snw Product Selection Permitted - Pepcid 20 mg Oral Tablet - take 1 tablet by ORAL route once daily; 20 tablet; Refills: 0, Product snw Selection Permitted - Zithromax 500 mg Oral Tablet - take 1 tablet by ORAL route once daily for 5 days; 5 tablet; Refills: 0, snw Product Selection Permitted Signatures: Dispatcher [employer] EDMS Mirna Lazo, PHARMACY ORDER ENTRY TECHNICIAN-C PHARMACY ORDER ENTRY TECHNICIAN-Csnw Cadence Saunders, CATE RN iw Tai Claudio RN RN jl7 Ej Licona DO DO ms3
[2021-11-03] MEDS ORDERED: MAGNES/ALUMIN/SIMET 30ML UCUP ONE (18:57)
[2021-11-03] MEDS ORDERED: AZITHROMYCIN 250 MG TAB ONE (18:57)
[2021-11-03] MEDS ORDERED: LIDOCAINE VISCOUS 2% SOLN 15 ML UDC ONE (18:57)
[2021-11-03] MEDS ORDERED: FAMOTIDINE 20 MG TAB ONE (18:57)
[2021-11-03] MEDS ORDERED: CETIRIZINE HCL 5 MG TABLET ONE (19:00)
== END 2021-11-03 19:07 | disposition home or self-care (01) ==
LOC: ER 17:26
DX: J02.0 Streptococcal pharyngitis (principal); Z20.822 Contact with and (suspected) exposure to COVID-19; F17.210 Nicotine dependence, cigarettes, uncomplicated; Z91.013 Allergy to seafood
CPT/HCPCS: 87081; 87804 ×2; U0003; 99282

== ENCOUNTER 2024-01-15 21:17 | Emergency (ER) | payer BC, SELFPAY ==
--- OUTSIDE RECORDS SUMMARY | 2024-01-15 21:20 | XMS REPORT | Continuity of Care Document ---
Author Name Unknown Address [address] [facility] [place] [address] [facility] thconnect Address [address] [place] [address] Care Team Providers Care Hvac Project Manager Name Role Phone ALIREZA DALLAS Primary Care Physician Unava ilable DARLEEN COHEN Attending Clinician Unavailab le DARLEEN COHEN Attending Clinician Unavailab le ChaDarleen Aburto Attending Clinician [phone] Doctor Unassigned, [place] Attending Clinician U navailable Draw, [facility] Attending Clinician UnavailMonty Pablo MD Attending Clinician [phone] MONTY GLEASON Attending Clinician Unavailable BRADNAN HAWKINS Attending Clinician Unavailable Daniel Joaquin DO Attending Clinician [phone] Suzanna Gaytan Attending Clinician [phone] Emmanuel Oreilly MD Attending Clinician + [phone] Brandan Hawkins MD Attending Clinician [phone] Zulema Jones MD Attending Clinician [phone] ZULEMA JONES Attending Clinician Unavail able [facility], [facility] Attending Clinician Unavailable Nataly Hurd RN Attending Clinician [phone] ROSALBA CARDENAS Attending Clinician Unavailable Jason Clemens MD Attending Clinician [phone] Rosalba Cardenas DO Attending Clinician LUCIE AKINS Attending Clinician Unavailable Lucie Rizo Attending Clinician [phone] TEMO HOYOS Attending Clinician Unavail able TEMO HOYOS Attending Clinician Unavail able Meghann Lynch Attending Clinician [phone] MEGHANN NAVA Attending Clinician Unavailable Only, Samson Db Test Attending Clinician Unavailabl sandhya Banks MD, Francois Attending Clinician [phone] FRANCOIS BANKS Attending Clinician Unavailable Isabela Fraser RN Attending Clinician Unavailab le Unknown, Attending Attending Clinician Unavailab le UNKNOWN, ATTENDING Attending Clinician Unavailab le Provider, [facility] Attending Clinician Un available Lab, Adc Fam Pob I Attending Clinician Unavailab le Pob1, [facility] Attending Clinician Unav ailable BRANDAN HAWKINS Admitting Clinician Unavailable Brandan Hawkins MD Admitting Clinician [phone] MONTY GLEASON Admitting Clinician Unavailable FIDELINA DINERO Admitting Clinician Unavailable ROSALBA CARDENAS Admitting Clinician Unavailable Rosalba Cardenas DO Admitting Clinician [phone] Payers Payer Name Policy Type Policy Number Effective Date Expirati on Date Source [facility] [id number] 2023 00:00:00 Problems Condition Name Condition Details Condition Category Status Onset Date Resolution Date Last Treatment Date Treating Clinician Comments Source NSTEMI (non-ST elevated myocardial infarction ) NSTEMI (non-ST elevated myocardial infarction ) Disease Active 04-15 00:00: 00 [facility] Perianal abscess Perianal abscess Disease Active 2020-02 00:00: 00 [facility] Obesity (BMI 30-39.9) Obesity (BMI 30-39.9) Disease Active 2020-02 00:00: 00 [facility] Attention deficit hyperactiv ity disorder (ADHD) Attention deficit hyperactiv ity disorder (ADHD) Disease Active 04-08 00:00: 00 Overview: Formattin g of this note might be different from the original. ICD10 Diagnosis Term Die Try Out Worker Utility [facility] Undiagnose d cardiac murmurs Undiagnose d cardiac murmurs Disease Resolve d 2006-0 3-28 00:00: 00 2007-03-01 00:00:00 2007-03-01 08:56:32 [facility] Allergies, Adverse Reactions, Alerts Allergy Name Allergy Type Status Severity Reaction(s) Onset Date Inactive Date Treating Clinician Comments Source Shellfis h Derived Drug Allergy Active Rash 2020-02 00:00: 00 [facility] SHELLFIS H DERIVED DRUG INGREDI Active Rash 2020-02 00:00: 00 [facility] Social History Social Habit Start Date Stop Date Quantity Comments Source [facility] of tobacco use Cigarette Smoker [facility] History SDOH Alcohol Frequency [facility] History SDOH Alcohol Std Drinks [facility] History SDOH Alcohol Binge [facility] Exposure to SARS-CoV-2 (event) 2021-09-05 00:00:00 2021-09-15 14:38:00 Not sure [facility] History of Social function 2021-09-15 00:00:00 2021-09-15 00:00:00 [facility] Alcoholic beverage intake 2021-09-15 00:00:00 2021-09-15 00:00:00 Current drinker of alcohol (finding) [facility] Tobacco use and exposure 2021-09-15 00:00:00 2021-09-15 00:00:00 Smokeless tobacco non-user [facility] Cigarettes smoked current (pack per day) - Reported 2021-09-15 00:00:00 2021-09-15 00:00:00 [facility] Cigarette pack-years 2021-09-15 00:00:00 2021-09-15 00:00:00 [facility] Alcohol intake 2021-01-17 00:00:00 2021-01-17 00:00:00 Current drinker of alcohol (finding) [facility] Alcohol Comment 2020-11-06 00:00:00 2020-11-06 00:00:00 once per month [facility] Sex assigned at 2000 00:00:00 2000 00:00:00 [facility] Smoking Status Start Date Stop Date Source Smokes tobacco daily 2021-09-15 00:00:00 [facility] Medications Ordered Medication Name Filled Medication Name Start Date Stop Date Current Medication? Ordering Clinician Indication Dosage Frequency Signature (SIG) Comments Components Source OXcarbazepi ne 300 mg tablet 09-15 00:00: 00 Yes [id number] 600mg Take 2 tablets by mouth in the morning and 2 tablets in the evening. [facility] diclofenac 75 mg EC tablet 08-31 00:00: 00 Yes 75mg Take 75 mg by mouth in the morning and 75 mg in the evening. [facility] OXcarbazepi ne 300 mg tablet 06-09 00:00: 00 09-15 00:00 :00 No [id number] 600mg Take 2 tablets by mouth 2 (two) times daily. [facility] Immunizations Ordered Immunization Name Filled Immunization Name Date Status Comments Source TDAP 2023-12-02 00:00:00 Completed [facility] Meningococcal B, Recombinant 2016-01-28 00:00:00 Completed [facility] Influenza Virus Vaccine Quad IM 3+ YRS 2016-01-28 00:00:00 Completed [facility] Meningococcal B, Recombinant 2016-01-28 00:00:00 Completed Influenza Virus Vaccine Quad IM 3+ YRS 2016-01-28 00:00:00 Completed Meningococcal B, Recombinant 2015-08-06 00:00:00 Completed [facility] Meningococcal B, Recombinant 2015-08-06 00:00:00 Completed Meningococcal B, Recombinant 2015-05-16 00:00:00 Completed [facility] Meningococcal B, Recombinant 2015-05-16 00:00:00 Completed Meningococcal Polysaccharide (groups A, C, Y and W-135) conjugate vaccine (MCV4P) 2014-10-25 00:00:00 Completed [facility] Meningococcal Polysaccharide (groups A, C, Y and W-135) conjugate vaccine (MCV4P) 2014-10-25 00:00:00 Completed Influenza Virus Vaccine Quad Nasal 2013-11-20 00:00:00 Completed [facility] Influenza Virus Vaccine Quad Nasal (Flumist) 2013-11-20 00:00:00 Completed HPV 2012-07-14 00:00:00 Completed [facility] HPV 2012-07-14 00:00:00 Completed Influenza Virus Vaccine (3+ yrs) 2012-02-23 00:00:00 Completed [facility] HPV 2012-02-23 00:00:00 Completed [facility] Influenza, split virus, trivalent, preservative (3+ Yrs) (Afluria) 2012-02-23 00:00:00 Completed HPV 2012-02-23 00:00:00 Completed HPV 2011 00:00:00 Completed [facility] HPV 2011 00:00:00 Completed TDAP 2009-08-06 00:00:00 Completed [facility] Meningococcal Polysaccharide (groups A, C, Y and W-135) conjugate vaccine (MCV4P) 2009-08-06 00:00:00 Completed [facility] HEPATITIS A 2009-08-06 00:00:00 Completed [facility] TDAP 2009-08-06 00:00:00 Completed Meningococcal Polysaccharide (groups A, C, Y and W-135) conjugate vaccine (MCV4P) 2009-08-06 00:00:00 Completed HEPATITIS A 2009-08-06 00:00:00 Completed HEPATITIS A 2007-05-04 00:00:00 Completed [facility] Varicella (varivax)(chicken pox) 2007-05-04 00:00:00 Completed [facility] HEPATITIS A 2007-05-04 00:00:00 Completed Varicella (varivax)(chicken pox) 2007-05-04 00:00:00 Completed DTAP 2002-09-04 00:00:00 Completed [facility] MMR 2002-09-04 00:00:00 Completed [facility] Polio (IPV/OPV) 2002-09-04 00:00:00 Completed [facility] IPV 2002-09-04 00:00:00 Completed [facility] IPV 2002-09-04 00:00:00 Completed DTAP 1999-12-09 00:00:00 Completed [facility] HIB 4 Dose Schedule 1999-12-09 00:00:00 Completed [facility] DTAP 1999-12-09 00:00:00 Completed HIB 4 Dose Schedule 1999-12-09 00:00:00 Completed MMR 1999-08-11 00:00:00 Completed [facility] Varicella (varivax)(chicken pox) 1999-08-11 00:00:00 Completed [facility] MMR 1999-08-11 00:00:00 Completed Varicella (varivax)(chicken pox) 1999-08-11 00:00:00 Completed Hep B, Adol or Pedi Dosage 1999-05-05 00:00:00 Completed [facility] Polio (IPV/OPV) 1999-05-05 00:00:00 Completed [facility] IPV 1999-05-05 00:00:00 Completed [facility] Hep B, Adol or Pedi Dosage 1999-05-05 00:00:00 Completed Polio (IPV/OPV) 1999-05-05 00:00:00 Completed IPV 1999-05-05 00:00:00 Completed DTAP 1999-02-18 00:00:00 Completed [facility] HIB 4 Dose Schedule 1999-02-18 00:00:00 Completed [facility] Hep B, Adol or Pedi Dosage 1999-02-18 00:00:00 Completed [facility] DTAP 1999-02-18 00:00:00 Completed HIB 4 Dose Schedule 1999-02-18 00:00:00 Completed Hep B, Adol or Pedi Dosage 1999-02-18 00:00:00 Completed DTAP 1998 00:00:00 Completed [facility] HIB 4 Dose Schedule 1998 00:00:00 Completed [facility] Polio (IPV/OPV) 1998 00:00:00 Completed [facility] IPV 1998 00:00:00 Completed [facility] DTAP 1998 00:00:00 Completed HIB 4 Dose Schedule 1998 00:00:00 Completed Polio (IPV/OPV) 1998 00:00:00 Completed IPV 1998 00:00:00 Completed DTAP 1998 00:00:00 Completed [facility] HIB 4 Dose Schedule 1998 00:00:00 Completed [facility] Polio (IPV/OPV) 1998 00:00:00 Completed [facility] IPV 1998 00:00:00 Completed [facility] DTAP 1998 00:00:00 Completed HIB 4 Dose Schedule 1998 00:00:00 Completed Polio (IPV/OPV) 1998 00:00:00 Completed [facility] IPV 1998 00:00:00 Completed Hep B, Adol or Pedi Dosage 1998 00:00:00 Completed [facility] Hep B, Adol or Pedi Dosage 1998 00:00:00 Completed [facility] Hep B, Adol or Pedi Dosage Unknown Completed [facility] DTAP Unknown Completed [facility] HIB 4 Dose Schedule Unknown Completed [facility] MMR Unknown Completed [facility] Polio (IPV/OPV) Unknown Completed [facility] Varicella (varivax)(chicken pox) Unknown Completed [facility] HEPATITIS A Unknown Completed [facility] TDAP Unknown Completed [facility] Meningococcal B, Recombinant Unknown Completed [facility] Meningococcal Polysaccharide (groups A, C, Y and W-135) conjugate vaccine (MCV4P) Unknown Completed [facility] IPV Unknown Completed [facility] Influenza Virus Vaccine Quad Nasal (Flumist) Unknown Completed [facility] Influenza Virus Vaccine Quad IM 3+ YRS Unknown Completed [facility] Influenza Virus Vaccine (3+ yrs) Unknown Completed [facility] HPV Unknown Completed [facility] Hep B, Adol or Pedi Dosage Unknown Completed [facility] DTAP Unknown Completed [facility] HIB 4 Dose Schedule Unknown Completed [facility] MMR Unknown Completed [facility] Polio (IPV/OPV) Unknown Completed [facility] Varicella (varivax)(chicken pox) Unknown Completed [facility] HEPATITIS A Unknown Completed [facility] TDAP Unknown Completed [facility] Meningococcal B, Recombinant Unknown Completed [facility] Meningococcal Polysaccharide (groups A, C, Y and W-135) conjugate vaccine (MCV4P) Unknown Completed [facility] IPV Unknown Completed [facility] Influenza Virus Vaccine Quad Nasal (Flumist) Unknown Completed [facility] Influenza Virus Vaccine Quad IM 3+ YRS Unknown Completed [facility] Influenza Virus Vaccine (3+ yrs) Unknown Completed [facility] HPV Unknown Completed [facility] Hep B, Adol or Pedi Dosage Unknown Completed [facility] DTAP Unknown Completed [facility] HIB 4 Dose Schedule Unknown Completed [facility] MMR Unknown Completed [facility] Polio (IPV/OPV) Unknown Completed [facility] Varicella (varivax)(chicken pox) Unknown Completed [facility] HEPATITIS A Unknown Completed [facility] TDAP Unknown Completed [facility] Meningococcal B, Recombinant Unknown Completed [facility] Meningococcal Polysaccharide (groups A, C, Y and W-135) conjugate vaccine (MCV4P) Unknown Completed [facility] IPV Unknown Completed [facility] Influenza Virus Vaccine Quad Nasal (Flumist) Unknown Completed [facility] Influenza Virus Vaccine Quad IM 3+ YRS Unknown Completed [facility] Influenza Virus Vaccine (3+ yrs) Unknown Completed [facility] HPV Unknown Completed [facility] Vital Signs Vital Name Observation Time Observation Value Comments S ource Systolic blood pressure 2023-12-02 18:02:00 130 mm[Hg] [facility] Diastolic blood pressure 2023-12-02 18:02:00 73 mm[Hg] [facility] Heart rate 2023-12-02 18:02:00 94 /min [facility] Body temperature 2023-12-02 18:02:00 36.83 [place] [facility] Respiratory rate 2023-12-02 18:02:00 18 /min [facility] Body height 2023-12-02 18:02:00 170.2 cm [facility] Body weight 2023-12-02 18:02:00 95.255 kg [facility] BMI 2023-12-02 18:02:00 32.89 kg/m2 [facility] Oxygen saturation in Arterial blood by Pulse oximetry 2023-12-02 18:02:00 99 /min [facility] Systolic blood pressure 2021-09-15 19:49:00 148 mm[Hg] [facility] Diastolic blood pressure 2021-09-15 19:49:00 80 mm[Hg] [facility] Heart rate 2021-09-15 19:49:00 95 /min [facility] Body height 2021-09-15 19:49:00 172.7 cm [facility] Body weight 2021-09-15 19:49:00 92.625 kg [facility] BMI 2021-09-15 19:49:00 31.05 kg/m2 [facility] Oxygen saturation in Arterial blood by Pulse oximetry 2021-09-15 19:49:00 96 /min [facility] Encounters Start Date/Time End Date/Time Encounter Type Admission Type Attending Clinicians Care Facility Care Department Encounter ID Source 2023-12-02 13:03:00 2023-12-02 16:10:00 Emergency X DAREK, DARLEEN BARRAGAN [facility] ERT [id number] [facility] 2023-12-02 13:03:00 2023-12-02 16:10:00 Emergency Darleen Cohen [facility] 1..840.114 350.1.13.10 4.2.7.2.686 [id number] [facility] 2022-02-16 00:00:00 2022-02-16 00:00:00 Patient Secure Msg Doctor Unassigned, [place] [facility] 1..840.114 350.1.13.10 4.2.7.2.686 [id number] [facility] 2021-09-15 15:30:00 2021-09-15 15:45:00 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, [facility] Monty Gleason [facility] 1..840.114 350.1.13.10 4.2.7.2.686 [id number] [facility] 2021-09-15 15:30:00 2021-09-15 15:33:26 Outpatient R MONTY GLEASON [facility] [id number] [facility] 2021-09-15 15:30:00 2021-09-15 15:30:00 Outpatient R MONTY GLEASON [facility] [id number] [facility] 2021-09-15 14:30:00 2021-09-15 15:18:37 [facility] 1.2.840.114 350.1.13.10 4.2.7.2.686 [id number] [facility] 2021-09-15 14:30:00 2021-09-15 15:18:37 Outpatient R MONTY GLEASON [facility] [id number] [facility] 2021-06-09 12:15:00 2021-06-09 12:20:26 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, [facility] Jose Luis [facility] OFFICE BUILDING 1.2.840.114 350.1.13.10 4.2.7.2.686 [id number] [facility] 2021-06-09 12:15:00 2021-06-09 12:20:26 Outpatient R MONTY GLEASON [facility] [id number] [facility] 2021-06-09 11:30:00 2021-06-09 12:12:58 Outpatient R MONTY GLEASON [facility] [id number] [facility] 2021-06-09 11:30:00 2021-06-09 12:12:58 Office Visit Jose Luis [facility] OFFICE BUILDING 1.2.840.114 350.1.13.10 4.2.7.2.686 [id number] [facility] 2021-06-03 00:00:00 2021-06-03 00:00:00 Telephone Jose Luis [facility] OFFICE BUILDING 1.2.840.114 350.1.13.10 4.2.7.2.686 [id number] [facility] 2021-04-15 09:15:00 2021-04-15 19:14:00 Outpatient BRANDAN SARAH [facility] [id number] [facility] 2021-04-15 09:15:00 2021-04-15 19:14:00 Hospital Encounter Daniel Joaquin, Suzanna Oreilly, Brandan Kumar [facility] 1.2.840.114 350.1.13.10 4.2.7.2.686 [id number] [facility] 2021-04-15 09:15:00 2021-04-15 19:14:00 Outpatient BRANDAN SARAH [facility] [id number] [facility] 2021-04-07 11:45:00 2021-04-07 12:15:09 Outpatient R JOSE LUIS [facility] [id number] [facility] 2021-04-07 11:45:00 2021-04-07 12:00:00 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, [facility] 1.2.840.114 350.1.13.10 4.2.7.2.686 [id number] [facility] 2021-04-07 10:30:00 2021-04-07 11:00:00 Office Visit Jose Luis [facility] OFFICE BUILDING 1.2.840.114 350.1.13.10 4.2.7.2.686 [id number] [facility] 2021-04-07 10:30:00 2021-04-07 10:30:00 Outpatient R JOSE LUIS [facility] [id number] [facility] 2021-02-21 08:00:00 2021-02-21 10:19:53 Office Visit Zulema Jones [facility] 1..840.114 350.1.13.10 4.2.7.2.686 [id number] [facility] 2021-02-21 08:00:00 2021-02-21 10:19:53 Outpatient ZULEMA HERNANDEZ [facility] [id number] [facility] 2021-02-21 08:00:00 2021-02-21 10:19:53 Outpatient ZULEMA HERNANDEZ [facility] [id number] [facility] 2021-02-21 08:00:00 2021-02-21 08:00:00 Outpatient ZULEMA HERNANDEZ [facility] [id number] [facility] 2021-01-29 13:46:08 2021-01-29 23:59:00 [id number] 2021-01-29 13:46:08 2021-01-29 23:59:00 Hospital Encounter Monty Gleason, [facility]eg ZULEMA STEPHANY ANNEX 1..840.114 350.1.13.10 4.2.7.2.686 [id number] [facility] 2021-01-29 14:00:00 2021-01-29 14:00:00 Outpatient R MONTY GLEASON [facility] [id number] [facility] 2021-01-27 10:00:49 2021-01-27 23:59:00 Outpatient R MONTY GLEASON [facility] [id number] [facility] 2021-01-27 10:00:49 2021-01-27 23:59:00 Hospital Encounter Monty Gleason [facility] 1..840.114 350.1.13.10 4.2.7.2.686 [id number] [facility] 2021-01-27 10:00:49 2021-01-27 23:59:00 [facility] [id number] 2021-01-27 00:00:00 2021-01-27 00:00:00 Patient Secure Msg Doctor Unassigned, [place] [facility] 1.2.114 350.1.13.10 4.2.7.2.686 [id number] [facility] 2021-01-21 00:00:00 2021-01-21 00:00:00 Transition of Care Vannessa Nataly ELKINS 1..114 350.1.13.10 4.2.7.2.686 [id number] [facility] 2021-01-21 00:00:00 2021-01-21 00:00:00 Patient Secure Msg Doctor Unassigned, [place] [facility] 1.114 350.1.13.10 4.2.7.2.686 [id number] [facility] 2021-01-17 15:23:00 2021-01-19 14:00:00 Inpatient X ROSALBA CARDENAS [facility] MOO [id number] [facility] 2021-01-17 15:23:00 2021-01-19 14:00:00 Hospital Encounter Jason Clemens David [facility] 1.114 350.1.13.10 4.2.7.2.686 [id number] [facility] 2021-01-17 13:30:00 2021-01-17 14:34:21 Outpatient R LUCIE AKINS [facility] [id number] [facility] 2021-01-17 13:26:38 2021-01-17 13:56:38 Office Visit Lucie Akins [facility] 1.114 350.1.13.10 4.2.7.2.686 [id number] [facility] 2021-01-17 13:30:00 2021-01-17 13:30:00 Outpatient LUCIE CARMONA [facility] [id number] [facility] 2020-12-30 09:49:54 2020-12-30 10:04:54 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, [facility] Jose Luis [facility] MEDICAL OFFICE BUILDING 1..840.114 350.1.13.10 4.2.7.2.686 [id number] [facility] 2020-12-30 09:00:00 2020-12-30 09:47:43 Outpatient R JOSE LUIS [facility] [id number] [facility] 2020-12-30 08:44:46 2020-12-30 09:47:43 Office Visit Jose Luis [facility] MEDICAL OFFICE BUILDING 1..840.114 350.1.13.10 4.2.7.2.686 [id number] [facility] 2020-12-06 15:40:00 2020-12-06 15:40:00 Outpatient TEMO QURESHI HOWARD [facility] [id number] [facility] 2020-11-06 13:28:26 2020-11-06 13:58:26 Office Visit Meghann Nava [facility] Mario Alberto Thorne?[facility] 1..840.114 350.1.13.10 4.2.7.2.686 [id number] [facility] 2020-11-06 13:30:00 2020-11-06 13:30:00 Outpatient MEGHANN ALEJANDRA [facility] [id number] [facility] 2020-11-06 00:00:00 2020-11-06 00:00:00 Orders Only Doctor Unassigned, [place] [facility] 1..840.114 350.1.13.10 4.2.7.2.686 [id number] [facility] 2020-11-03 14:59:57 2020-11-03 15:14:57 Laboratory Only Only, Ang Db Test [facility] 1.114 350.1.13.10 4.2.7.2.686 [id number] [facility] 2020-11-03 15:00:00 2020-11-03 15:00:00 Outpatient R [facility]ELYN [facility] [id number] [facility] 2020-10-23 00:00:00 2020-10-23 00:00:00 [facility] 1.114 350.1.13.10 4.2.7.2.686 [id number] [facility] 2020-10-22 13:17:45 2020-10-22 13:32:45 Laboratory Only Only, Ang Db Test Unknown, Attending [facility] 1. 350.1.13.10 4.2.7.2.686 [id number] [facility] 2020-10-22 13:00:00 2020-10-22 13:00:00 Outpatient R UNKNOWN, ATTENDING [facility] [id number] [facility] 2020-07-16 12:11:38 2020-07-16 13:01:19 Urgent Care Provider, [facility] 1. 350.1.13.10 4.2.7.2.686 [id number] 2020-07-16 12:11:38 2020-07-16 13:01:19 Urgent Care Provider, [facility] Lucie Akins [facility] 1.114 350.1.13.10 4.2.7.2.686 [id number] [facility] 2020-07-16 12:00:00 2020-07-16 12:00:00 Outpatient R LUCIE AKINS [facility] [id number] [facility] 2020-07-16 00:00:00 2020-07-16 00:00:00 Orders Only Doctor Unassigned, [place] [facility] 1.2840.114 350.1.13.10 4.2.7.2.686 [id number] 2020-07-16 00:00:00 2020-07-16 00:00:00 Orders Only Doctor Unassigned, [place] [facility] 1.0.114 350.1.13.10 4.2.7.2.686 [id number] [facility] 2020-06-10 09:51:59 2020-06-10 10:11:59 Laboratory Only Lab, [facility] 1.114 350.1.13.10 4.2.7.2.686 [id number] 2020-06-10 09:51:59 2020-06-10 10:11:59 Laboratory Only Lab, [facility] 1.114 350.1.13.10 4.2.7.2.686 [id number] [facility] 2020-06-10 09:40:00 2020-06-10 09:40:00 Outpatient R LUCIE AKINS [facility] [id number] [facility] 2019-11-21 00:00:00 2019-11-21 00:00:00 [facility] 1.114 350.1.13.10 4.2.7.2.686 [id number] 2019-11-21 00:00:00 2019-11-21 00:00:00 [facility] 1.2.840.114 350.1.13.10 4.2.7.2.686 [id number] [facility] 2019-11-20 09:12:16 2019-11-20 10:31:36 Urgent Care Provider, [facility] 1.2.840.114 350.1.13.10 4.2.7.2.686 [id number] 2019-11-20 09:12:16 2019-11-20 10:31:36 Urgent Care Provider, [facility] Office [facility] One 1.2840.114 350.1.13.10 4.2.7.2.686 [id number] [facility] 2019-11-20 10:07:37 2019-11-20 10:22:37 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 Lab, [facility] Pob I [facility] One 1.2840.114 350.1.13.10 4.2.7.2.686 [id number] 2019-11-20 10:07:37 2019-11-20 10:22:37 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 Lab, [facility] 1.2840.114 350.1.13.10 4.2.7.2.686 [id number] [facility] 2019-11-20 09:20:00 2019-11-20 09:20:00 Outpatient R [facility] [id number] [facility] 2019-11-20 00:00:00 2019-11-20 00:00:00 Letter (Out) [facility] 1.2.840.114 350.1.13.10 4.2.7.2.686 [id number] [facility] 2019-11-20 00:00:00 2019-11-20 00:00:00 Letter (Out) Lucie Akins [facility] 1.2.840.114 350.1.13.10 4.2.7.2.686 [id number] 2019-06-23 00:00:00 2019-06-23 00:00:00 Telephone Pob1, Acute Care [facility] One 1.2.840.114 350.1.13.10 4.2.7.2.686 [id number] [facility] 2019-06-23 00:00:00 2019-06-23 00:00:00 Letter (Out) Pob1, Acute Care Clinic [facility] One 1.2.840.114 350.1.13.10 4.2.7.2.686 [id number] [facility] 2019-06-21 16:52:25 2019-06-21 17:06:51 Urgent Care Pob1, Acute Care Clinic HetalMeghann [facility] One 1.2.840.114 350.1.13.10 4.2.7.2.686 [id number] [facility] 2019-06-21 16:52:25 2019-06-21 17:06:51 Urgent Care Pob1, Acute Care Clinic [facility] One 1.2.840.114 350.1.13.10 4.2.7.2.686 [id number] 2019-06-21 16:40:00 2019-06-21 16:40:00 Outpatient R MEGHANN NAVA [facility] [id number] [facility]
--- NOTE | 2024-01-15 21:33 | ER ---
Nurse's Notes [facility] Name: Cuba Artis Age: 23 yrs Sex: Male : 2000 Arrival Date: 01/15/2024 Time: 21:17 Bed Waiting Private MD: Diagnosis: Dental root caries Presentation: 01/14 21:29 Chief complaint: Patient states: Toothache to left upper that has been going on for a me1 couple of months but has worsened and become unbearable tonight. Coronavirus screen: Vaccine status: Patient reports being unvaccinated. Ebola Screen: No symptoms or risks identified at this time. Initial Sepsis Screen: Does the patient meet any 2 criteria? No. Patient's initial sepsis screen is negative. Does the patient have a suspected source of infection? No. Patient's initial sepsis screen is negative. Risk Assessment: Do you want to hurt yourself or someone else? Patient reports no desire to harm self or others. Onset of symptoms is unknown. 21:29 Method Of Arrival: Ambulatory [facility] 21:29 Acuity: DEAN 5 me1 Triage Assessment: 21:32 General: Appears uncomfortable, well groomed, well developed, well nourished, Behavior me1 is calm, cooperative, appropriate for age. Pain: Complains of pain in upper left cuspid Pain does not radiate. Pain currently is 10 out of 10 on a pain scale. Quality of pain is described as throbbing, Pain began gradually, Is continuous. EENT: Reports pain in upper left cuspid. Neuro: Level of Consciousness is awake, alert, obeys commands, Oriented to person, place, time, situation, Appropriate for age. Cardiovascular: Patient's skin is warm and dry. Respiratory: Airway is patent Respiratory effort is even, unlabored, Respiratory pattern is regular, symmetrical. GI: No signs and/or symptoms were reported involving the gastrointestinal system. : No signs and/or symptoms were reported regarding the genitourinary system. Derm: Skin is intact, is healthy with good turgor, Skin is pink, warm \T\ dry. Musculoskeletal: No signs and/or symptoms reported regarding the musculoskeletal system. Historical: - Allergies: 21:32 SHELLFISH; me1 21:32 shrimp; me1 - PMHx: 21:32 ADD/ADHD; Seizure; me1 - PSHx: 21:32 None; me1 - Immunization history:: Adult Immunizations up to date. - Infectious Disease History:: Denies. - Social history:: Smoking status: Reported history of juuling and/or vaping. Screenin:34 [facility] ED Fall Risk Assessment (Adult) History of falling in the last 3 months, me1 including since admission No falls in past 3 months (0 pts) Confusion or Disorientation No (0 pts) Intoxicated or Sedated No (0 pts) Impaired Gait No (0 pts) Mobility Assist Device Used No (0 pt) Altered Elimination No (0 pt) Score/Fall Risk Level 0 - 2 = Low Risk Maintained a safe environment, Provided non-skid footwear, Hourly rounding (assess needs \T\ fall precautionary measures) done. Abuse screen: Denies threats or abuse. Nutritional screening: No deficits noted. Tuberculosis screening: No symptoms or risk factors identified. Assessment: 21:34 General: See triage assessment.. me1 Vital Signs: 21:29 BP 158 / 90; Pulse 74; Resp 17; Temp 98.2; Pulse Ox 98% ; Weight 95.25 kg; Height 5 ft. me1 8 in. ; Pain 10/10; 21:43 Pain 7/10; me1 21:29 Body Mass Index 31.93 (95.25 kg, 172.72 cm) me1 21:29 Pain Scale: Adult me1 21:43 Pain Scale: Adult ky1 ED Course: 21:20 Patient arrived in ED. gm2 21:22 Nba Lopez MD is Attending Physician. ec2 21:32 Tiburcio Tsai [facility]-C [facility] 21:32 Triage completed. me1 21:32 Arm band placed on Patient placed in an exam room. me1 21:34 Patient has correct armband on for positive identification. Call light in reach. me1 Provided Education on: POC. Verbalized understanding.. 21:34 No provider procedures requiring assistance completed. Patient did not have IV access me1 during this emergency room visit. Administered Medications: 21:41 Drug: Amoxicillin-Clavulanate PO 875 mg PO once Route: PO; me1 21:43 Follow up: Response: No adverse reaction me1 21:41 Drug: Ketorolac IM 30 mg IM once Route: IM; Site: right deltoid; me1 21:43 Follow up: Response: No adverse reaction; Pain is decreased me1 21:42 Drug: HYDROcodone-acetaminophen PO 5 mg-325 mg 2 tabs PO once Route: PO; me1 21:43 Follow up: Pain 08/17 Adult; Response: No adverse reaction; Pain is decreased me1 Medication: 21:34 VIS not applicable for this client. me1 Outcome: 21:32 Discharge ordered by . dr5 21:43 Discharged to home ambulatory, with significant other, me1 21:43 Condition: stable 21:43 Discharge instructions given to patient, significant other, Instructed on discharge instructions, follow up and referral plans. medication usage, Demonstrated understanding of instructions, follow-up care, medications, Prescriptions given X 2, 21:43 Patient left the ED. me1 Signatures: Mena Bradshaw RN RN me1 Nba Lopez MD MD ec2 Elaina Arriaza 2 Tiburcio Tsai, BEAD MAKER-C BEAD MAKER-Cdr5
--- NOTE | 2024-01-15 21:33 | EDPHYS ---
Physician Documentation [facility] Name: Cuba Artis Age: 23 yrs Sex: Male : 2000 Arrival Date: 01/15/2024 Time: 21:17 Bed Waiting Private MD: ED Physician Nba Lopez HPI: 01/14 21:39 This 23 yrs old Male presents to ER via Ambulatory with complaints of dr5 Toothache. 21:39 The patient presents with broken tooth/teeth, redness, swelling. The problem is located dr5 in the gums. Patient is a 23-year-old male with history of seizures (last seizure was 5 years ago) coming in with left-sided facial swelling and dental abscess formation that is been going on for the past 3 months. Patient denies fever, difficulty handling secretions.. Historical: - Allergies: 21:32 SHELLFISH; me1 21:32 shrimp; me1 - PMHx: 21:32 ADD/ADHD; Seizure; me1 - PSHx: 21:32 None; me1 - Immunization history:: Adult Immunizations up to date. - Infectious Disease History:: Denies. - Social history:: Smoking status: Reported history of juuling and/or vaping. ROS: 21:39 Constitutional: as per hpi dr5 Exam: 21:39 Constitutional: This is a well developed, well nourished patient who is awake, alert, dr5 and in no acute distress. Eyes: Pupils equal round and reactive to light, extra-ocular motions intact. Lids and lashes normal. Conjunctiva and sclera are non-icteric and not injected. Cornea within normal limits. Periorbital areas with no swelling, redness, or edema. ENT: Nares patent. No nasal discharge, no septal abnormalities noted. Tympanic membranes are normal and external auditory canals are clear. Oropharynx with no redness, swelling, or masses, exudates, or evidence of obstruction, uvula midline. Mucous membranes moist. Chest/axilla: Normal chest wall appearance and motion. Nontender with no deformity. No lesions are appreciated. Cardiovascular: Regular rate and rhythm with a normal S1 and S2. Normal PMI, no JVD. No pulse deficits. Respiratory: Lungs have equal breath sounds bilaterally, clear to auscultation. No rales, rhonchi or wheezes noted. No increased work of breathing, no retractions or nasal flaring. Back: No spinal tenderness. No costovertebral tenderness. Full range of motion. Skin: Warm, dry with normal turgor. Normal color with no rashes, no lesions, and no evidence of cellulitis. Neuro: Awake and alert, GCS 15, oriented to person, place, time, and situation. Cranial nerves II-XII grossly intact. Motor strength 5/5 in all extremities. Sensory grossly intact. Cerebellar exam normal. Normal gait. 21:39 ENT: Mouth: Lips: normal, Oral mucosa: normal, Gums: normal with healthy appearance, abscess, that is minimal, of the gums, Vital Signs: 21:29 BP 158 / 90; Pulse 74; Resp 17; Temp 98.2; Pulse Ox 98% ; Weight 95.25 kg; Height 5 ft. me1 8 in. ; Pain 10/10; 21:43 Pain 7/10; me1 21:29 Body Mass Index 31.93 (95.25 kg, 172.72 cm) me1 21:29 Pain Scale: Adult me1 21:43 Pain Scale: Adult me1 MDM: 21:32 Medical Screening Exam initiated dr5 21:39 Differential diagnosis: dental caries, gingivitis, dental abscess, pericoronitis. Data dr5 reviewed: vital signs, nurses notes. Consideration of Admission/Observation Considered admission if febrile and abscess obstructing ability to open mouth.. I considered the following discharge prescriptions or medication management in the emergency department Medications were administered in the Emergency Department. See MAR. Care significantly affected by the following chronic conditions: ADD, Seizure. Care significantly affected by the following Social Determinants of Health: Poor access to healthcare and/or lack of insurance, Poor access to transportation. Counseling: I had a detailed discussion with the patient and/or guardian regarding the historical points, exam findings, and any diagnostic results supporting the discharge/admit diagnosis, the presence of at least one elevated blood pressure reading (>120/80) during this emergency department visit, the need for outpatient follow up, for definitive care, a dentist, a family practitioner, Discussed with patient to search for low cost dental clinics in [place] if finances are an issue, to return to the emergency department if symptoms worsen or persist or if there are any questions or concerns that arise at home. Response to treatment: the patient's symptoms have markedly improved after treatment. ED course: All pharmacies in this area are closed. Will give first dose of Augmentin and pain medication in ER. Recommended patient follow-up with dentist. Alternate Tylenol Motrin as needed for pain and fever. Follow-up with PCP and return to ER for worsening conditions.. Administered Medications: 21:41 Drug: Amoxicillin-Clavulanate PO 875 mg PO once Route: PO; me1 21:43 Follow up: Response: No adverse reaction me1 21:41 Drug: Ketorolac IM 30 mg IM once Route: IM; Site: right deltoid; me1 21:43 Follow up: Response: No adverse reaction; Pain is decreased me1 21:42 Drug: HYDROcodone-acetaminophen PO 5 mg-325 mg 2 tabs PO once Route: PO; me1 21:43 Follow up: Pain 08/17 Adult; Response: No adverse reaction; Pain is decreased me1 Disposition Summary: 01/15/24 21:32 Discharge Ordered Notes: Location: Home dr5 Condition: Stable dr5 Diagnosis - Dental root caries dr5 Followup: dr5 - With: Emergency Department - When: As needed - Reason: Worsening of condition Followup: dr5 - With: Private Physician - When: 1 - 2 days - Reason: Recheck today's complaints, Continuance of care, Re-evaluation by your physician Discharge Instructions: - Discharge Summary Sheet dr5 - Dental Pain dr5 Forms: - Medication Reconciliation Form dr5 - Antibiotic Education dr5 - Patient Portal Instructions dr5 - Leadership Thank You Letter dr5 Prescriptions: - Augmentin 875-125 mg Oral Tablet - take 1 tablet ORAL route every 12 hours for 10 days; 20 tablet; Refills: 0, dr5 Product Selection Permitted - Tramadol 50 mg Oral Tablet - take 1 tablet ORAL route every 8 hours as needed; 12 tablet; Refills: 0, dr5 Product Selection Permitted Addendum: 01/19/2024 09:44 I was immediately available for consultation during this patient's visit. I did not e c2 personally see the patient or discuss the patient with the WOODY. . Signatures: Mena Bradshaw RN RN me1 Nba Lopez MD MD ec2 Tiburcio Tsai, TRENA-C QUICK MIXER OPERATOR-Cdr5
[2024-01-15] MEDS ORDERED: KETOROLAC 30 MG/ML INJ ONE (21:37)
[2024-01-15] MEDS ORDERED: AMOX/K CLAV 875 MG TAB ONE (21:37)
[2024-01-15] MEDS ORDERED: HYDROCODONE/APAP 5/325 MG TAB ONE (21:38)
[2024-01-16 03:56] VITALS: BP 158/90; TEMP 98.2; O2SAT 98
== END 2024-01-15 21:43 | disposition home or self-care (01) ==
LOC: ER 21:17
DX: K02.7 Dental root caries (principal)
CPT/HCPCS: 96372; 99284

== ENCOUNTER 2024-10-25 13:48 | Emergency (ER) | payer SELFPAY ==
--- OUTSIDE RECORDS SUMMARY | 2024-10-25 13:53 | XMS REPORT | Continuity of Care Document ---
Author Name Unknown Address [address] [place] [address] [facility] [place] Address [address] [place] [address] Care Team Providers Care Advanced Practice Nurse Psychotherapist Name Role Phone PCP, PATIENT DOES NOT HAVE A Primary Care Physic lilian Unavailable SHAIZAVIANCA, MARILEE A Attending Clinician Unavaildoris MENA MARILEE A Attending Clinician UnavailDARLEEN Moore Attending Clinician Unavailab DARLEEN Montgomery Attending Clinician Unavailab Darleen Blunt Attending Clinician [phone] Doctor Unassigned, [place] Attending Clinician U navailrobert Draw, [facility] Attending Clinician UnavailMonty Pablo MD Attending Clinician [phone] MONTY GLEASON Attending Clinician Unavailable BRANDAN HAWKINS Attending Clinician Unavailable Daniel Joaquin DO Attending Clinician [phone] Suzanna Gaytan Attending Clinician [phone] Emmanuel Oreilly MD Attending Clinician Brandan Hawkins MD Attending Clinician [phone] Zulema Jones MD Attending Clinician [phone] ZULEMA JONES Attending Clinician Unavail able [facility] Attending Clinician Unavailable Nataly Hurd RN Attending Clinician ROSALBA CARDENAS Attending Clinician Unavailable Jason Clemens MD Attending Clinician [phone] Rosalba Cardenas DO Attending Clinician [phone] LUCIE AKINS Attending Clinician Unavailable Lucie Rizo Attending Clinician [phone] TEMO HOYOS Attending Clinician Unavail able TEMO HOYOS Attending Clinician Unavail able Meghann Lynch Attending Clinician [phone] MEGHANN NAVA Attending Clinician Unavailable Only, Ang Db Test Attending Clinician Unavaildoris Banks MD, Francois Attending Clinician [phone] FRANCOIS BANKS Attending Clinician Unavailable Isabela Fraser RN Attending Clinician Unavailab le Unknown, Attending Attending Clinician Unavailab le UNKNOWN, ATTENDING Attending Clinician Unavailab le Provider, [facility] Attending Clinician Un available Lab, Adc Fam Pob I Attending Clinician Unavailab le Pob1, Acute Care Clinic Attending Clinician Unav ailable BRANDAN HAWKINS Admitting Clinician Unavailable Brandan Hawkins MD Admitting Clinician [phone] MONTY GLEASON Admitting Clinician Unavailable FIDELINA DINERO Admitting Clinician Unavailable ROSALBA CARDENAS Admitting Clinician Unavailable Rosalba Cardenas DO Admitting Clinician Payers Payer Name Policy Type Policy Number Effective Date Expirati on Date Source [facility] [id number] 2021 00:00:00 I GENERIC [id number] 2023 00:00:00 Problems Condition Name Condition Details Condition Category Status Onset Date Resolution Date Last Treatment Date Treating Clinician Comments Source NSTEMI (non-ST elevated myocardial infarction ) NSTEMI (non-ST elevated myocardial infarction ) Disease Active 04-15 00:00: 00 [facility] Perianal abscess Perianal abscess Disease Active 2020-02 00:00: 00 [facility] Obesity (BMI 30-39.9) Obesity (BMI 30-39.9) Disease Active 2020-02 00:00: 00 [facility] Attention deficit hyperactiv ity disorder (ADHD) Attention deficit hyperactiv ity disorder (ADHD) Disease Active 04-08 00:00: 00 Overview: Formattin g of this note might be different from the original. 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 [facility] Undiagnose d cardiac murmurs Undiagnose d cardiac murmurs Disease Resolve d 05-05 00:00: 00 2007-03-01 00:00:00 2007-03-01 08:56:32 [facility] Allergies, Adverse Reactions, Alerts Allergy Name Allergy Type Status Severity Reaction(s) Onset Date Inactive Date Treating Clinician Comments Source Shellfis h Derived Drug Allergy Active Rash 2020-02 00:00: 00 [facility] SHELLFIS H DERIVED DRUG INGREDI Active Rash 2020-02 00:00: 00 [facility] Social History Social Habit Start Date Stop Date Quantity Comments Source [facility] of tobacco use Cigarette Smoker [facility] History SDOH Alcohol Frequency [facility] History SDOH [facility] Alcohol Binge [facility] Exposure to SARS-CoV-2 (event) 2021-09-05 00:00:00 2021-09-15 14:38:00 Not sure [facility] History of Social function 2021-09-15 00:00:00 2021-09-15 00:00:00 [facility] Alcoholic beverage intake 2021-09-15 00:00:00 2021-09-15 00:00:00 Current drinker of alcohol (finding) [facility] Tobacco use and exposure 2021-09-15 00:00:00 2021-09-15 00:00:00 Smokeless tobacco non-user [facility] Cigarettes smoked current (pack per day) - Reported 2021-09-15 00:00:00 2021-09-15 00:00:00 [facility] Cigarette pack-years 2021-09-15 00:00:00 2021-09-15 00:00:00 [facility] Alcohol intake 2021-01-17 00:00:00 2021-01-17 00:00:00 Current drinker of alcohol (finding) [facility] Alcohol Comment 2020-11-06 00:00:00 2020-11-06 00:00:00 once per month [facility] Sex assigned at 2000 00:00:00 2000 00:00:00 [facility] Smoking Status Start Date Stop Date Source Smokes tobacco daily 2021-09-15 00:00:00 [facility] Medications Ordered Medication Name Filled Medication Name Start Date Stop Date Current Medication? Ordering Clinician Indication Dosage Frequency Signature (SIG) Comments Components Source OXcarbazepi ne 300 mg tablet 09-15 00:00: 00 Yes [id number] 600mg Take 2 tablets by mouth in the morning and 2 tablets in the evening. [facility] diclofenac 75 mg EC tablet 08-31 00:00: 00 Yes 75mg Take 75 mg by mouth in the morning and 75 mg in the evening. [facility] OXcarbazepi ne 300 mg tablet 06-09 00:00: 00 09-15 00:00 :00 No [id number] 600mg Take 2 tablets by mouth 2 (two) times daily. [facility] Immunizations Ordered Immunization Name Filled Immunization Name Date Status Comments Source TDAP 2023-12-02 00:00:00 Completed [facility] Meningococcal B, Recombinant 2016-01-28 00:00:00 Completed [facility] Influenza Virus Vaccine Quad IM 3+ YRS 2016-01-28 00:00:00 Completed [facility] Meningococcal B, Recombinant 2016-01-28 00:00:00 Completed Influenza Virus Vaccine Quad IM 3+ YRS 2016-01-28 00:00:00 Completed Meningococcal B, Recombinant 2015-08-06 00:00:00 Completed [facility] Meningococcal B, Recombinant 2015-08-06 00:00:00 Completed Meningococcal B, Recombinant 2015-05-16 00:00:00 Completed [facility] Meningococcal B, Recombinant 2015-05-16 00:00:00 Completed Meningococcal Polysaccharide (groups A, C, Y and W-135) conjugate vaccine (MCV4P) 2014-10-25 00:00:00 Completed [facility] Meningococcal Polysaccharide (groups A, C, Y and W-135) conjugate vaccine (MCV4P) 2014-10-25 00:00:00 Completed Influenza Virus Vaccine Quad Nasal 2013-11-20 00:00:00 Completed [facility] Influenza Virus Vaccine Quad Nasal (Flumist) 2013-11-20 00:00:00 Completed HPV 2012-07-14 00:00:00 Completed [facility] HPV 2012-07-14 00:00:00 Completed Influenza Virus Vaccine (3+ yrs) 2012-02-23 00:00:00 Completed [facility] HPV 2012-02-23 00:00:00 Completed [facility] Influenza, split virus, trivalent, preservative (3+ Yrs) (Afluria) 2012-02-23 00:00:00 Completed HPV 2012-02-23 00:00:00 Completed HPV 2011 00:00:00 Completed [facility] HPV 2011 00:00:00 Completed TDAP 2009-08-06 00:00:00 Completed [facility] Meningococcal Polysaccharide (groups A, C, Y and W-135) conjugate vaccine (MCV4P) 2009-08-06 00:00:00 Completed [facility] HEPATITIS A 2009-08-06 00:00:00 Completed [facility] TDAP 2009-08-06 00:00:00 Completed Meningococcal Polysaccharide (groups A, C, Y and W-135) conjugate vaccine (MCV4P) 2009-08-06 00:00:00 Completed HEPATITIS A 2009-08-06 00:00:00 Completed HEPATITIS A 2007-05-04 00:00:00 Completed [facility] Varicella (varivax)(chicken pox) 2007-05-04 00:00:00 Completed [facility] HEPATITIS A 2007-05-04 00:00:00 Completed Varicella (varivax)(chicken pox) 2007-05-04 00:00:00 Completed DTAP 2002-09-04 00:00:00 Completed [facility] MMR 2002-09-04 00:00:00 Completed [facility] Polio (IPV/OPV) 2002-09-04 00:00:00 Completed [facility] IPV 2002-09-04 00:00:00 Completed [facility] IPV 2002-09-04 00:00:00 Completed DTAP 1999-12-09 00:00:00 Completed [facility] HIB 4 Dose Schedule 1999-12-09 00:00:00 Completed [facility] DTAP 1999-12-09 00:00:00 Completed HIB 4 Dose Schedule 1999-12-09 00:00:00 Completed MMR 1999-08-11 00:00:00 Completed [facility] Varicella (varivax)(chicken pox) 1999-08-11 00:00:00 Completed [facility] MMR 1999-08-11 00:00:00 Completed Varicella (varivax)(chicken pox) 1999-08-11 00:00:00 Completed Hep B, Adol or Pedi Dosage 1999-05-05 00:00:00 Completed [facility] Polio (IPV/OPV) 1999-05-05 00:00:00 Completed [facility] IPV 1999-05-05 00:00:00 Completed [facility] Hep B, Adol or Pedi Dosage 1999-05-05 00:00:00 Completed Polio (IPV/OPV) 1999-05-05 00:00:00 Completed IPV 1999-05-05 00:00:00 Completed DTAP 1999-02-18 00:00:00 Completed [facility] HIB 4 Dose Schedule 1999-02-18 00:00:00 Completed [facility] Hep B, Adol or Pedi Dosage 1999-02-18 00:00:00 Completed [facility] DTAP 1999-02-18 00:00:00 Completed HIB 4 Dose Schedule 1999-02-18 00:00:00 Completed Hep B, Adol or Pedi Dosage 1999-02-18 00:00:00 Completed DTAP 1998 00:00:00 Completed [facility] HIB 4 Dose Schedule 1998 00:00:00 Completed [facility] Polio (IPV/OPV) 1998 00:00:00 Completed [facility] IPV 1998 00:00:00 Completed [facility] DTAP 1998 00:00:00 Completed HIB 4 Dose Schedule 1998 00:00:00 Completed Polio (IPV/OPV) 1998 00:00:00 Completed IPV 1998 00:00:00 Completed DTAP 1998 00:00:00 Completed [facility] HIB 4 Dose Schedule 1998 00:00:00 Completed [facility] Polio (IPV/OPV) 1998 00:00:00 Completed [facility] IPV 1998 00:00:00 Completed [facility] DTAP 1998 00:00:00 Completed HIB 4 Dose Schedule 1998 00:00:00 Completed Polio (IPV/OPV) 1998 00:00:00 Completed [facility] IPV 1998 00:00:00 Completed Hep B, Adol or Pedi Dosage 1998 00:00:00 Completed [facility] Hep B, Adol or Pedi Dosage 1998 00:00:00 Completed [facility] Hep B, Adol or Pedi Dosage Unknown Completed [facility] DTAP Unknown Completed [facility] HIB 4 Dose Schedule Unknown Completed [facility] MMR Unknown Completed [facility] Polio (IPV/OPV) Unknown Completed [facility] Varicella (varivax)(chicken pox) Unknown Completed [facility] HEPATITIS A Unknown Completed [facility] TDAP Unknown Completed [facility] Meningococcal B, Recombinant Unknown Completed [facility] Meningococcal Polysaccharide (groups A, C, Y and W-135) conjugate vaccine (MCV4P) Unknown Completed [facility] IPV Unknown Completed [facility] Influenza Virus Vaccine Quad Nasal (Flumist) Unknown Completed [facility] Influenza Virus Vaccine Quad IM 3+ YRS Unknown Completed [facility] Influenza Virus Vaccine (3+ yrs) Unknown Completed [facility] HPV Unknown Completed [facility] Hep B, Adol or Pedi Dosage Unknown Completed [facility] DTAP Unknown Completed [facility] HIB 4 Dose Schedule Unknown Completed [facility] MMR Unknown Completed [facility] Polio (IPV/OPV) Unknown Completed [facility] Varicella (varivax)(chicken pox) Unknown Completed [facility] HEPATITIS A Unknown Completed [facility] TDAP Unknown Completed [facility] Meningococcal B, Recombinant Unknown Completed [facility] Meningococcal Polysaccharide (groups A, C, Y and W-135) conjugate vaccine (MCV4P) Unknown Completed [facility] IPV Unknown Completed [facility] Influenza Virus Vaccine Quad Nasal (Flumist) Unknown Completed [facility] Influenza Virus Vaccine Quad IM 3+ YRS Unknown Completed [facility] Influenza Virus Vaccine (3+ yrs) Unknown Completed [facility] HPV Unknown Completed [facility] Hep B, Adol or Pedi Dosage Unknown Completed [facility] DTAP Unknown Completed [facility] HIB 4 Dose Schedule Unknown Completed [facility] MMR Unknown Completed [facility] Polio (IPV/OPV) Unknown Completed [facility] Varicella (varivax)(chicken pox) Unknown Completed [facility] HEPATITIS A Unknown Completed [facility] TDAP Unknown Completed [facility] Meningococcal B, Recombinant Unknown Completed [facility] Meningococcal Polysaccharide (groups A, C, Y and W-135) conjugate vaccine (MCV4P) Unknown Completed [facility] IPV Unknown Completed [facility] Influenza Virus Vaccine Quad Nasal (Flumist) Unknown Completed [facility] Influenza Virus Vaccine Quad IM 3+ YRS Unknown Completed [facility] Influenza Virus Vaccine (3+ yrs) Unknown Completed [facility] HPV Unknown Completed [facility] Vital Signs Vital Name Observation Time Observation Value Comments S ource Systolic blood pressure 2023-12-02 18:02:00 130 mm[Hg] [facility] Diastolic blood pressure 2023-12-02 18:02:00 73 mm[Hg] [facility] Heart rate 2023-12-02 18:02:00 94 /min [facility] Body temperature 2023-12-02 18:02:00 36.83 [place] [facility] Respiratory rate 2023-12-02 18:02:00 18 /min [facility] Body height 2023-12-02 18:02:00 170.2 cm [facility] Body weight 2023-12-02 18:02:00 95.255 kg [facility] BMI 2023-12-02 18:02:00 32.89 kg/m2 [facility] Oxygen saturation in Arterial blood by Pulse oximetry 2023-12-02 18:02:00 99 /min [facility] Systolic blood pressure 2021-09-15 19:49:00 148 mm[Hg] [facility] Diastolic blood pressure 2021-09-15 19:49:00 80 mm[Hg] [facility] Heart rate 2021-09-15 19:49:00 95 /min [facility] Body height 2021-09-15 19:49:00 172.7 cm [facility] Body weight 2021-09-15 19:49:00 92.625 kg [facility] BMI 2021-09-15 19:49:00 31.05 kg/m2 [facility] Oxygen saturation in Arterial blood by Pulse oximetry 2021-09-15 19:49:00 96 /min [facility] Encounters Start Date/Time End Date/Time Encounter Type Admission Type Attending [facility] Care Facility Care Department Encounter ID Source 2024-04-25 14:01:00 2024-04-25 14:56:00 Emergency X BEHZADI, MARILEE BEHZADI, MARILEE [facility] E[facility] [id number] [facility] 2023-12-02 13:03:00 2023-12-02 16:10:00 Emergency X DARLEEN COHEN TASHA [facility] ERT [id number] [facility] 2023-12-02 13:03:00 2023-12-02 16:10:00 Emergency Darleen Cohen [facility] ..840.114 350.1.13.10 4.2.7.2.686 [id number] [facility] 2022-02-16 00:00:00 2022-02-16 00:00:00 Patient Secure Msg Doctor Unassigned, [place] [facility] BUILD[facility] 1..840.114 350.1.13.10 4.2.7.2.686 [id number] [facility] 2021-09-15 15:30:00 2021-09-15 15:45:00 Fund Controller Visit Draw[facility] 1.2.840.114 350.1.13.10 4.2.7.2.686 [id number] [facility] 2021-09-15 15:30:00 2021-09-15 15:33:26 Outpatient R MONTY GLEASON [facility] [id number] [facility] 2021-09-15 15:30:00 2021-09-15 15:30:00 [id number] [facility] 2021-09-15 14:30:00 2021-09-15 15:18:37 [facility] 1.2.840.114 350.1.13.10 4.2.7.2.686 [id number] [facility] 2021-09-15 14:30:00 2021-09-15 15:18:37 Outpatient R MONTY GLEASON [facility] [id number] [facility] 2021-06-09 12:15:00 2021-06-09 12:20:26 Fund Controller Visit Draw, [facility] Lab Rosibel [facility] OFFICE BUILDING 1.2.840.114 350.1.13.10 4.2.7.2.686 [id number] [facility] 2021-06-09 12:15:00 2021-06-09 12:20:26 Outpatient R MONTY GLEASON [facility] [id number] [facility] 2021-06-09 11:30:00 2021-06-09 12:12:58 Outpatient R MONTY GLEASON [facility] [id number] [facility] 2021-06-09 11:30:00 2021-06-09 12:12:58 Office Visit Li, [facility] OFFICE BUILDING 1.2.840.114 350.1.13.10 4.2.7.2.686 [id number] [facility] 2021-06-03 00:00:00 2021-06-03 00:00:00 Telephone Rosibel [facility] OFFICE BUILDING 1.2.840.114 350.1.13.10 4.2.7.2.686 [id number] [facility] 2021-04-15 09:15:00 2021-04-15 19:14:00 Outpatient BRANDAN SARAH [facility] [id number] [facility] 2021-04-15 09:15:00 2021-04-15 19:14:00 Hospital Encounter Daniel Joaquin, Suzanna Oreilly, Emmanuel Hawkins [facility] 1..840.114 350.1.13.10 4.2.7.2.686 [id number] [facility] 2021-04-15 09:15:00 2021-04-15 19:14:00 Outpatient BRANDAN SARAH [facility] [id number] [facility] 2021-04-07 11:45:00 2021-04-07 12:15:09 Outpatient R ROSIBEL [facility] [id number] [facility] 2021-04-07 11:45:00 2021-04-07 12:00:00 Fund Controller Visit Draw, [facility]Bls Lab Rosibel [facility] 1.2.840.114 350.1.13.10 4.2.7.2.686 [id number] [facility] 2021-04-07 10:30:00 2021-04-07 11:00:00 Office Visit Rosibel [facility] OFFICE [facility] 1.2.840.114 350.1.13.10 4.2.7.2.686 [id number] [facility] 2021-04-07 10:30:00 2021-04-07 10:30:00 Outpatient R MONTY GLEASON [facility] [id number] [facility] 2021-02-21 08:00:00 2021-02-21 10:19:53 Office Visit Zulema Jones [place] [id number] 350.1.13.10 4.2.7.2.686 [id number] [facility] 2021-02-21 08:00:00 2021-02-21 10:19:53 Outpatient ZULEMA HERNANDEZ [facility] [id number] [facility] 2021-02-21 08:00:00 2021-02-21 10:19:53 Outpatient ZULEMA HERNANDEZ [facility] [id number] [facility] 2021-02-21 08:00:00 2021-02-21 08:00:00 Outpatient ZULEMA HERNANDEZ [facility] [id number] [facility] 2021-01-29 13:46:08 2021-01-29 23:59:00 Outpatient MONTY JAMES [facility] [id number] [facility] 2021-01-29 13:46:08 2021-01-29 23:59:00 Hospital Encounter Monty Gleason [facility] ZULEMA HAMMOND [facility] 1.2.840.114 350.1.13.10 4.2.7.2.686 [id number] [facility] 2021-01-29 14:00:00 2021-01-29 14:00:00 Outpatient MONTY JAMES [facility] [id number] [facility] 2021-01-27 10:00:49 2021-01-27 23:59:00 Outpatient MONTY JAMES [facility] [id number] [facility] 2021-01-27 10:00:49 2021-01-27 23:59:00 Hospital Encounter Monty Gleason [facility] 1.0.114 350.1.13.10 4.2.7.2.686 [id number] [facility] 2021-01-27 10:00:49 2021-01-27 23:59:00 Outpatient R MONTY GLEASON [facility] [id number] [facility] 2021-01-27 00:00:00 2021-01-27 00:00:00 Patient Secure Msg Doctor Unassigned, [place] [facility] 1.0.114 350.1.13.10 4.2.7.2.686 [id number] [facility] 2021-01-21 00:00:00 2021-01-21 00:00:00 Transition of Care Nataly Hurd 1.0.114 350.1.13.10 4.2.7.2.686 [id number] [facility] 2021-01-21 00:00:00 2021-01-21 00:00:00 Patient Secure Msg Doctor Unassigned, [place] [facility] 1.2840.114 350.1.13.10 4.2.7.2.686 [id number] [facility] 2021-01-17 15:23:00 2021-01-19 14:00:00 Inpatient X ROSALBA CARDENAS [facility] [id number] [facility] 2021-01-17 15:23:00 2021-01-19 14:00:00 Hospital Encounter Jason Clemens David [facility] 1.20.114 350.1.13.10 4.2.7.2.686 [id number] [facility] 2021-01-17 13:30:00 2021-01-17 14:34:21 Outpatient R LUCIE AKINS [facility] [id number] [facility] 2021-01-17 13:26:38 2021-01-17 13:56:38 Office Visit Lucie Akins [facility] 1..840.114 350.1.13.10 4.2.7.2.686 [id number] [facility] 2021-01-17 13:30:00 2021-01-17 13:30:00 Outpatient R LUCIE AKINS [facility] [id number] [facility] 2020-12-30 09:49:54 2020-12-30 10:04:54 Fund Controller [facility] 1..840.114 350.1.13.10 4.2.7.2.686 [id number] [facility] 2020-12-30 09:00:00 2020-12-30 09:47:43 Outpatient R MONTY GLEASON [facility] [id number] [facility] 2020-12-30 08:44:46 2020-12-30 09:47:43 [facility] 1..840.114 350.1.13.10 4.2.7.2.686 [id number] [facility] 2020-12-06 15:40:00 2020-12-06 15:40:00 Outpatient R TEMO HOYOS HOWARD [facility] [id number] [facility] 2020-11-06 13:28:26 2020-11-06 13:58:26 Office Visit Meghann Naav [facility] 1..840.114 350.1.13.10 4.2.7.2.686 [id number] [facility] 2020-11-06 13:30:00 2020-11-06 13:30:00 Outpatient R MEGHANN NAVA [facility] [id number] [facility] 2020-11-06 00:00:00 2020-11-06 00:00:00 Orders Only Doctor Unassigned, [place] [facility] 1.840.114 350.1.13.10 4.2.7.2.686 [id number] [facility] 2020-11-03 14:59:57 2020-11-03 15:14:57 Laboratory Only Only, Ang Db Test Darren Francois [facility] 1.840.114 350.1.13.10 4.2.7.2.686 [id number] [facility] 2020-11-03 15:00:00 2020-11-03 15:00:00 Outpatient R FRANCOIS BANKS [facility] [id number] [facility] 2020-10-23 00:00:00 2020-10-23 00:00:00 Telephone Isabela Fraser [facility] 1.840.114 350.1.13.10 4.2.7.2.686 [id number] [facility] 2020-10-22 13:17:45 2020-10-22 13:32:45 Laboratory Only Only, Ang Db Test Unknown, Attending [facility] 1.840.114 350.1.13.10 4.2.7.2.686 [id number] [facility] 2020-10-22 13:00:00 2020-10-22 13:00:00 Outpatient R UNKNOWN, ATTENDING [facility] [id number] [facility] 2020-07-16 12:11:38 2020-07-16 13:01:19 Urgent Care Provider, [facility] Office Building One 1.0.114 350.1.13.10 4.2.7.2.686 [id number] 2020-07-16 12:11:38 2020-07-16 13:01:19 Ur[facility] Care Provider, [facility] 1.840.114 350.1.13.10 4.2.7.2.686 [id number] [facility] 2020-07-16 12:00:00 2020-07-16 12:00:00 [facility] [id number] [facility] 2020-07-16 00:00:00 2020-07-16 00:00:00 Orders Only Doctor Unassigned, [place] [facility] 1.840.114 350.1.13.10 4.2.7.2.686 [id number] 2020-07-16 00:00:00 2020-07-16 00:00:00 Orders Only Doctor Unassigned, [place] [facility] 1.2840.114 350.1.13.10 4.2.7.2.686 [id number] [facility] 2020-06-10 09:51:59 2020-06-10 10:11:59 Laboratory Only Lab, [facility] Office Building One .0.114 350.1.13.10 4.2.7.2.686 [id number] 2020-06-10 09:51:59 2020-06-10 10:11:59 Laboratory Only Lab, [facility] One 1.0.114 350.1.13.10 4.2.7.2.686 [id number] [facility] 2020-06-10 09:40:00 2020-06-10 09:40:00 Outpatient R LUCIE AKINS [facility] [id number] [facility] 2019-11-21 00:00:00 2019-11-21 00:00:00 Telephone Lucie Akins [facility] Office Building One 1.2.840.114 350.1.13.10 4.2.7.2.686 [id number] 2019-11-21 00:00:00 2019-11-21 00:00:00 Telephone Lucie Akins [facility] Office Building One 1.2840.114 350.1.13.10 4.2.7.2.686 [id number] [facility] 2019-11-20 09:12:16 2019-11-20 10:31:36 Urgent Care Provider, [facility] Office Building One 1.2840.114 350.1.13.10 4.2.7.2.686 [id number] 2019-11-20 09:12:16 2019-11-20 10:31:36 [facility] Care Provider, [facility] One 1.2840.114 350.1.13.10 4.2.7.2.686 [id number] [facility] 2019-11-20 10:07:37 2019-11-20 10:22:37 Fund Controller Visit Lab, [facility] Fam Pob I [facility] Office Building One 1.2840.114 350.1.13.10 4.2.7.2.686 [id number] 2019-11-20 10:07:37 2019-11-20 10:22:37 Fund Controller Visit Lab, [facility] One 1.2840.114 350.1.13.10 4.2.7.2.686 [id number] [facility] 2019-11-20 09:20:00 2019-11-20 09:20:00 Outpatient R [facility] [id number] [facility] 2019-11-20 00:00:00 2019-11-20 00:00:00 Letter (Out) Lucie Akins [facility] Office Building One 1.2.840.114 350.1.13.10 4.2.7.2.686 [id number] [facility] 2019-11-20 00:00:00 2019-11-20 00:00:00 Letter (Out) Lucie Akins [facility] Office Building One 1.2.840.114 350.1.13.10 4.2.7.2.686 [id number] 2019-06-23 00:00:00 2019-06-23 00:00:00 Telephone Pob1, Acute Care Clinic [facility] Office Building One 1.2.840.114 350.1.13.10 4.2.7.2.686 [id number] [facility] 2019-06-23 00:00:00 2019-06-23 00:00:00 Letter (Out) Pob1, Acute Care Clinic [facility] Office Building One 1.2.840.114 350.1.13.10 4.2.7.2.686 [id number] [facility] 2019-06-21 16:52:25 2019-06-21 17:06:51 Urgent Care Pob1, Acute Care Clinic Meghann Nava [facility] Office Building One 1.2.840.114 350.1.13.10 4.2.7.2.686 [id number] [facility] 2019-06-21 16:52:25 2019-06-21 17:06:51 Urgent Care Pob1, Acute Care Clinic [facility] Office Building One 1.2.840.114 350.1.13.10 4.2.7.2.686 [id number] 2019-06-21 16:40:00 2019-06-21 16:40:00 Outpatient R MEGHANN NAVA [facility] [id number] [facility] Notes Date/Time Note Provider Source 2023-12-02 16:09:18 PT D/C home. GCS15, VS stable, no ataxia noted. Given no prescriptions and D/C paperwork. Pt ambulatory at time of discharge. Pt educated on wound care, med usage, follow up care, s/s worsening condition. Pt verbalized understanding. Jayne Richard RN [facility] 2023-12-02 15:00:00 Report given to Juliette [facility] 2023-12-02 13:01:52 Patient to ED for laceration to right palm. Bleeding controlled. Reports he cut it on a piece of metal. Alejo Man RN [facility]
--- NOTE | 2024-10-25 14:32 | EDPHYS ---
Physician Documentation [facility] Name: Cuba Artis Age: 24 yrs Sex: Male : 2000 Arrival Date: 10/25/2024 Time: 13:48 Bed 11 Private MD: ED Physician Ann Tran HPI: 10/25 15:06 This 24 yrs old Male presents to ER via Ambulatory with complaints of Rash. kb 15:06 Patient is a 24-year-old male who presents for rash to groin that started 6 days ago. kb States the rash started after he shaved and that has been progressively getting worse. Reports the rash is painful during the day and itchy at night. Denies fever.. Historical: - Allergies: 14:09 SHELLFISH; hb 14:09 shrimp; hb - PMHx: 14:09 ADD/ADHD; Seizure; hb - Immunization history:: Adult Immunizations unknown. - Infectious Disease History:: Denies. - Social history:: Smoking status: unknown. ROS: 15:05 Constitutional: As per HPI kb Exam: 15:05 Constitutional: This is a well developed, well nourished patient who is awake, alert, kb and in no acute distress. Head/Face: Normocephalic, atraumatic. ENT: Moist Mucous membranes Respiratory: Respirations even and unlabored. No increased work of breathing. Talking in full sentences MS/ Extremity: Pulses equal, no cyanosis. Neurovascular intact. Full, normal range of motion. Neuro: Awake and alert, GCS 15, oriented to person, place, time, and situation. 15:05 Skin: rash a moderate rash is noted, rash can be described as erythematous, on the right femoral area, 15:05 Skin: injury, burn(s), and is located on the medial aspect of right hand, kb Vital Signs: 14:08 BP 131 / 72; Pulse 68; Resp 16; Temp 97.5; Pulse Ox 100% on R/A; Weight 90.72 kg; hb Height 5 ft. 7 in. ; 14:38 BP 127 / 70; Pulse 70; Resp 18; Pulse Ox 100% ; ap3 14:08 Body Mass Index 31.32 (90.72 kg, 170.18 cm) hb MDM: 14:22 Medical Screening Exam initiated kb 15:06 Differential diagnosis: impetigo, allergic reaction, parasite infection, Candidiasis, kb cellulitis, local infection. Data reviewed: vital signs, nurses notes. Counseling: I had a detailed discussion with the patient and/or guardian regarding the historical points, exam findings, and any diagnostic results supporting the discharge/admit diagnosis, the need for outpatient follow up, a family practitioner, to return to the emergency department if symptoms worsen or persist or if there are any questions or concerns that arise at home. Administered Medications: No medications were administered Disposition Summary: 10/25/24 14:31 Discharge Ordered Notes: Location: Home kb Condition: Stable kb Diagnosis - Rash and other nonspecific skin eruption kb - Burn of second degree of right hand, unspecified site, initial encounter kb Followup: kb - With: Emergency Department - When: As needed - Reason: Worsening of condition Followup: kb - With: Private Physician - When: 2 - 3 days - Reason: Recheck today's complaints, Continuance of care, Re-evaluation by your physician Discharge Instructions: - Discharge Summary Sheet kb - Rash, Adult, [id number] kb Forms: - Medication Reconciliation Form kb - Antibiotic Education kb - Prescription Opioid Use kb - Patient Portal Instructions kb - Leadership Thank You Letter Prescriptions: - nystatin 100,000 unit/gram Topical ointment - apply 1 application TOPICAL route 3 times per day; 1 Unspecified; Refills: 0, kb Product Selection Permitted - Cephalexin 500 mg Oral Capsule - take 1 capsule ORAL route every 8 hours for 10 days; 30 capsule; Refills: 0, kb Product Selection Permitted Signatures: Christel Cha FNP-C FNP-Lauren Kinsey RN CATE Nathalia Recio RN RN ap3
--- NOTE | 2024-10-25 14:32 | ER ---
Nurse's Notes [facility] Name: Cuba Artis Age: 24 yrs Sex: Male : 2000 Arrival Date: 10/25/2024 Time: 13:48 Bed 11 Private MD: Diagnosis: Rash and other nonspecific skin eruption;Burn of second degree of right hand, unspecified site, initial encounter Presentation: 10/25 14:08 Chief complaint: Itchy rash on right groin x 6 days. Coronavirus screen: At this time, hb the client does not indicate any symptoms associated with coronavirus-19. Ebola Screen: No symptoms or risks identified at this time. Initial Sepsis Screen: Does the patient meet any 2 criteria? No. Patient's initial sepsis screen is negative. Does the patient have a suspected source of infection? No. Patient's initial sepsis screen is negative. Risk Assessment: Do you want to hurt yourself or someone else? Patient reports no desire to harm self or others. Onset of symptoms was October 19, 2024. 14:08 Method Of Arrival: Ambulatory hb 14:08 Acuity: DEAN 4 hb Historical: - Allergies: 14:09 SHELLFISH; hb 14:09 shrimp; hb - PMHx: 14:09 ADD/ADHD; Seizure; hb - Immunization history:: Adult Immunizations unknown. - Infectious Disease History:: Denies. - Social history:: Smoking status: unknown. Screenin: [facility] ED Fall Risk Assessment (Adult) History of falling in the last 3 months, ap3 including since admission No falls in past 3 months (0 pts) Confusion or Disorientation No (0 pts) Intoxicated or Sedated No (0 pts) Impaired Gait No (0 pts) Mobility Assist Device Used No (0 pt) Altered Elimination No (0 pt) Score/Fall Risk Level 0 - 2 = Low Risk Oriented to surroundings, Maintained a safe environment, Educated pt \T\ family on fall prevention, incl call for assistance when getting out of bed, Assessed \T\ reinforced patient's understanding of fall precautions, Hourly rounding (assess needs \T\ fall precautionary measures) done, Used ambulatory aids as needed (educated on \T\ assisted with). Abuse screen: Denies threats or abuse. Nutritional screening: No deficits noted. Tuberculosis screening: No symptoms or risk factors identified. Assessment: 14: General: Appears in no apparent distress. Behavior is calm, cooperative, appropriate ap3 for age. Pain: Complains of pain in pelvis. Neuro: Level of Consciousness is awake, alert, obeys commands, Oriented to person, place, time, situation, Appropriate for age. Cardiovascular: Patient's skin is warm and dry. Respiratory: Airway is patent Respiratory effort is even, unlabored, Respiratory pattern is regular, symmetrical. Derm: Rash noted that is itchy, on pelvis. Vital Signs: 14:08 BP 131 / 72; Pulse 68; Resp 16; Temp 97.5; Pulse Ox 100% on R/A; Weight 90.72 kg; hb Height 5 ft. 7 in. ; 14:38 BP 127 / 70; Pulse 70; Resp 18; Pulse Ox 100% ; ap3 14:08 Body Mass Index 31.32 (90.72 kg, 170.18 cm) hb ED Course: 13:53 Patient arrived in ED. cj3 14:09 Triage completed. hb 14:09 Arm band placed on. 14:22 Christel Cha FNP-C is [facility]. kb 14:22 Ann Tran MD is Attending Physician. kb 14:27 Nathalia Recio, CATE is Primary Nurse. ap3 14:28 No provider procedures requiring assistance completed. Patient did not have IV access ap3 during this emergency room visit. 14:35 Provided Education on: discharge instructions. ap3 14:39 Patient has correct armband on for positive identification. ap3 Administered Medications: No medications were administered Medication: 14:28 VIS not applicable for this client. ap3 Outcome: 14:31 Discharge ordered by MD. kb 14:35 Discharged to home ambulatory, ap3 14:35 Condition: good 14:35 Discharge instructions given to patient, Instructed on discharge instructions, follow up and referral plans. Demonstrated understanding of instructions, follow-up care, medications, Prescriptions given X 2, 14:39 Patient left the ED. ap3 Signatures: Christel Cha FNP-C FNP-Ckb Baxter, Heather, RN RN Nathalia Recio RN RN ap3 Anni Leonard cj3 Corrections: (The following items were deleted from the chart) 14:10 14:08 Pulse 68bpm; Resp 16bpm; Pulse Ox 100% RA; Temp 97.5F; 90.72 kg; Height 5 ft. 7 hb in.; BMI: 31.3; hb 14:38 14:37 BP 161 / 99; Pulse 65bpm; Resp 17bpm; Pulse Ox 100% RA; ap3 ap3
[2024-10-25 14:52] VITALS: TEMP 97.5; O2SAT 100
[2024-10-25 14:54] VITALS: BP 127/70
== END 2024-10-25 14:39 | disposition home or self-care (01) ==
LOC: ER 13:48
DX: R21 Rash and other nonspecific skin eruption (principal); T23.201A Burn of second degree of right hand, unspecified site, initial encounter
CPT/HCPCS: 99283

== ENCOUNTER 2024-12-02 09:05 | Emergency (ER) | payer SELFPAY ==
[2024-12-02] MEDS ORDERED: KETOROLAC 30 MG/ML INJ ONE (09:22)
[2024-12-02] MEDS ORDERED: HYDROCODONE/APAP 5/325 MG TAB ONE (09:23)
--- NOTE | 2024-12-02 09:51 | RAD REPORT ---
Exam:Foot Left 3 View CLINICAL HISTORY: Left foot pain FINDINGS: No fracture or dislocation seen
--- NOTE | 2024-12-02 10:04 | EDPHYS ---
Physician Documentation [facility] Name: Cuba Artis Age: 24 yrs Sex: Male : 2000 Arrival Date: 12/02/2024 Time: 09:05 Bed 18 Private MD: ED Physician Reinaldo Lubin HPI: 12/02 09:16 This 24 yrs old Male presents to ER via Ambulatory with complaints of Foot dr5 Injury - left. 09:16 The patient presents with a contusion, swelling, tenderness. The complaints affect the dr5 dorsum of left foot and left first toe. Onset: The symptoms/episode began/occurred yesterday. Patient is a 24-year-old male with history of ADD and seizure disorder coming in with pain and swelling to left foot. Patient reports he was working yesterday on a tractor when a piece of heavy equipment landed straight on his steel toed boots causing injury to the top of left foot. Patient reports ability to bear weight as well as swelling has improved since yesterday.. Historical: - Allergies: 09:15 SHELLFISH; ll1 09:15 shrimp; ll1 - PMHx: 09:15 ADD/ADHD; Seizure; ll1 - PSHx: 09:15 None; ll1 - Immunization history:: Adult Immunizations up to date. - Infectious Disease History:: Denies. - Social history:: Smoking status: Reported history of juuling and/or vaping. ROS: 09:16 Constitutional: as per hpi dr5 Exam: 09:16 Constitutional: This is a well developed, well nourished patient who is awake, alert, dr5 and in no acute distress. Head/Face: Normocephalic, atraumatic. Eyes: Pupils equal round and reactive to light, extra-ocular motions intact. Lids and lashes normal. Conjunctiva and sclera are non-icteric and not injected. Cornea within normal limits. Periorbital areas with no swelling, redness, or edema. Neck: Trachea midline, no thyromegaly or masses palpated, and no cervical lymphadenopathy. Supple, full range of motion without nuchal rigidity, or vertebral point tenderness. No Meningismus. Chest/axilla: Normal chest wall appearance and motion. Nontender with no deformity. No lesions are appreciated. Cardiovascular: Regular rate and rhythm with a normal S1 and S2. Normal PMI, no JVD. No pulse deficits. Respiratory: Lungs have equal breath sounds bilaterally, clear to auscultation. No rales, rhonchi or wheezes noted. No increased work of breathing, no retractions or nasal flaring. Abdomen/GI: Soft, non-tender, non-distended Back: No spinal tenderness. No costovertebral tenderness. Full range of motion. Skin: Warm, dry with normal turgor. Normal color with no rashes, no lesions, and no evidence of cellulitis. Neuro: Awake and alert, GCS 15, oriented to person, place, time, and situation. Cranial nerves II-XII grossly intact. Motor strength 5/5 in all extremities. Sensory grossly intact. Cerebellar exam normal. Normal gait. 09:16 Musculoskeletal/extremity: Extremities: grossly normal except: noted in the left foot and left first toe: contusion, pain, swelling, tenderness, ROM: no acute changes, intact in all extremities, Circulation is intact in all extremities. Sensation intact. Vital Signs: 09:15 BP 128 / 73; Pulse 84; Resp 17; Temp 98.6; Pulse Ox 100% on R/A; Weight 90.72 kg; ll1 Height 5 ft. 8 in. ; Pain 6/10; 10:01 BP 138 / 79; Pulse 82; Resp 16; Pulse Ox 99% on R/A; ll1 09:15 Body Mass Index 30.41 (90.72 kg, 172.72 cm) ll1 09:15 Pain Scale: Adult ll1 Procedures: 10:15 Splinting: Splint applied to left foot using bobo wrap, applied by nurse. Examined by dr5 me, post splint application: neurovascular intact, 2+ distal pulses palpable, brisk capillary refill noted, Patient tolerated well. MDM: 09:08 Medical Screening Exam initiated dr5 10:14 Differential diagnosis: dislocation, open fracture, closed fracture, contusion, dr5 abrasion. Data reviewed: vital signs, nurses notes, radiologic studies, plain films. Consideration of Admission/Observation Escalation of care including admission/observation considered. Escalation considered patient found to have open fracture. I considered the following discharge prescriptions or medication management in the emergency department I discussed and recommended Over The Counter medications, Medications were administered in the Emergency Department. See MAR. Independent interpretation of the following test(s) in the Emergency Department X-Ray: My interpretation is Independent interpretation of x-ray does not reveal fracture of left foot. Historians other than the Patient: Spouse/Significant Other: Spouse. Care significantly affected by the following chronic conditions: ADD, Seizure Disorder. Care significantly affected by the following Social Determinants of Health: Poor access to healthcare and/or lack of insurance, Poor access to transportation, Problems related to employment. Counseling: I had a detailed discussion with the patient and/or guardian regarding the historical points, exam findings, and any diagnostic results supporting the discharge/admit diagnosis, the presence of at least one elevated blood pressure reading (>120/80) during this emergency department visit, radiology results, the need for outpatient follow up, for definitive care, a orthopedic surgeon, to return to the emergency department if symptoms worsen or persist or if there are any questions or concerns that arise at home. Medication response: Response to treatment: the patient's symptoms have markedly improved after treatment. Special discussion: I discussed with the patient/guardian in detail that at this point there is no indication for admission to the hospital. It is understood, however, that if the symptoms persist or worsen the patient needs to return immediately for re-evaluation. Based on the history and exam findings, there is no indication for further emergent testing or inpatient evaluation. I discussed with the patient/guardian the need to see the orthopedic surgeon for further evaluation of the symptoms. ED course: No fracture noted on radiology report. Bobo wrap applied to foot for comfort. Recommended RICE. All question answered. Strict ER precautions given.. 12/02 09:16 Order name: Foot Left 3 View XRAY; Complete Time: 09:55 dr5 12/02 09:55 Order name: Bobo Wrap; Complete Time: 10:00 dr5 Administered Medications: 09:30 Drug: Ketorolac IM 30 mg IM once Route: IM; Site: right vastus lateralis; ll1 10:00 Follow up: Response: No adverse reaction; Pain is decreased ll1 09:31 Drug: HYDROcodone-acetaminophen PO 5 mg-325 mg 2 tabs PO once {Note: pain 6/10 RASS 0.} ll1 Route: PO; 10:00 Follow up: Response: No adverse reaction; Pain is decreased; RASS: Alert and Calm (0) ll1 Disposition: 10:34 Co-signature as Attending Physician, Reinaldo Lubin MD I reviewed the patient's care rn provided by the Advanced Practice Provider and agree with the diagnosis and treatment plan. Disposition Summary: 12/02/24 10:03 Discharge Ordered Notes: Location: Home dr5 Condition: Stable dr5 Diagnosis - Pain in left foot dr5 Followup: dr5 - With: Emergency Department - When: As needed - Reason: Worsening of condition Followup: dr5 - With: Private Physician - When: 1 - 2 days - Reason: Recheck today's complaints, Continuance of care, Re-evaluation by your physician Discharge Instructions: - Discharge Summary Sheet dr5 - RICE Therapy for Routine Care of Injuries dr5 - Foot Pain dr5 Forms: - Medication Reconciliation Form dr5 - Patient Portal Instructions dr5 - Leadership Thank You Letter dr5 Signatures: Dispatcher [employer] Reinaldo Rosales MD MD rn Rebel Brink RN RN ll1 Tiburcio Tsai, DORR OPERATOR-C DORR OPERATOR-Cdr5 Corrections: (The following items were deleted from the chart) 09:16 09:16 Foot Left 3 View+RAD.RAD.BRZ ordered. EDND GUSTAVOND
--- NOTE | 2024-12-02 10:04 | ER ---
Nurse's Notes [facility] Name: Cuba Artis Age: 24 yrs Sex: Male : 2000 Arrival Date: 12/02/2024 Time: 09:05 Bed 18 Private MD: Diagnosis: Pain in left foot Presentation: 12/02 09:15 Chief complaint: Patient states: Dropped 1000 lb tractor equipment onto L foot ll1 yesterday at work. Coronavirus screen: Client denies travel out of the [place] in the last 14 days. At this time, the client does not indicate any symptoms associated with coronavirus-19. Ebola Screen: Patient denies travel to an Ebola-affected area in the 21 days before illness onset. Initial Sepsis Screen: Does the patient meet any 2 criteria? No. Patient's initial sepsis screen is negative. Does the patient have a suspected source of infection? No. Patient's initial sepsis screen is negative. Risk Assessment: Do you want to hurt yourself or someone else? Patient reports no desire to harm self or others. Onset of symptoms was December 01, 2024. 09:15 Method Of Arrival: Wheelchair ll1 09:15 Acuity: DEAN 4 ll1 Triage Assessment: 09:15 General: Appears uncomfortable, Behavior is calm, cooperative, appropriate for age. ll1 Pain: Complains of pain in left foot Pain currently is 6 out of 10 on a pain scale. Quality of pain is described as aching, Aggravated by increased activity, weight bearing. Musculoskeletal: Circulation, motion, and sensation intact. Capillary refill < 3 seconds, in left fingers. Swelling present in left foot Reports pain in dorsum of left foot. Injury Description: Bruise sustained to left foot. Historical: - Allergies: 09:15 SHELLFISH; ll1 09:15 shrimp; ll1 - PMHx: 09:15 ADD/ADHD; Seizure; ll1 - PSHx: 09:15 None; ll1 - Immunization history:: Adult Immunizations up to date. - Infectious Disease History:: Denies. - Social history:: Smoking status: Reported history of juuling and/or vaping. Screenin:32 [facility] ED Fall Risk Assessment (Adult) History of falling in the last 3 months, ll1 including since admission No falls in past 3 months (0 pts) Confusion or Disorientation No (0 pts) Intoxicated or Sedated No (0 pts) Impaired Gait Yes (1 pt) Mobility Assist Device Used Yes (1 pt) Altered Elimination No (0 pt) Score/Fall Risk Level 0 - 2 = Low Risk Maintained a safe environment, Hourly rounding (assess needs \T\ fall precautionary measures) done. Abuse screen: Denies threats or abuse. Nutritional screening: No deficits noted. Tuberculosis screening: No symptoms or risk factors identified. Assessment: 09:30 Reassessment: No changes from previously documented assessment. Patient and/or family ll1 updated on plan of care and expected duration. Pain level reassessed. Patient is alert, oriented x 3, equal unlabored respirations, skin warm/dry/pink. 10:04 Reassessment: No changes from previously documented assessment. Patient and/or family ll1 updated on plan of care and expected duration. Pain level reassessed. Patient is alert, oriented x 3, equal unlabored respirations, skin warm/dry/pink. Vital Signs: 09:15 BP 128 / 73; Pulse 84; Resp 17; Temp 98.6; Pulse Ox 100% on R/A; Weight 90.72 kg; ll1 Height 5 ft. 8 in. ; Pain 6/10; 10:01 BP 138 / 79; Pulse 82; Resp 16; Pulse Ox 99% on R/A; ll1 09:15 Body Mass Index 30.41 (90.72 kg, 172.72 cm) ll1 09:15 Pain Scale: Adult ll1 ED Course: 09:07 Patient arrived in ED. im 09:08 Tiburcio Tsai FNP-C is [facility]. dr5 09:08 Reinaldo Lubin MD is Attending Physician. dr5 09:09 Arm band placed on Patient placed in an exam room, on a stretcher. ll1 09:15 Rebel Brink, CATE is Primary Nurse. ll1 09:17 Triage completed. ll1 09:27 Foot Left 3 View XRAY In Process Unspecified. EDMS 09:33 Patient has correct armband on for positive identification. Bed in low position. ll1 Provided Education on: ER procedures and process. 10:01 Bobo wrap to left foot. ll1 10:15 No provider procedures requiring assistance completed. Patient did not have IV access dd2 during this emergency room visit. Administered Medications: 09:30 Drug: Ketorolac IM 30 mg IM once Route: IM; Site: right vastus lateralis; ll1 10:00 Follow up: Response: No adverse reaction; Pain is decreased ll1 09:31 Drug: HYDROcodone-acetaminophen PO 5 mg-325 mg 2 tabs PO once {Note: pain 6/10 RASS 0.} ll1 Route: PO; 10:00 Follow up: Response: No adverse reaction; Pain is decreased; RASS: Alert and Calm (0) ll1 Medication: 10:01 VIS not applicable for this client. ll1 Outcome: 10:03 Discharge ordered by . ingrid 10:14 Discharged to home via wheelchair, with family, dd2 10:14 Condition: stable 10:14 Discharge instructions given to patient, significant other, Instructed on discharge instructions, follow up and referral plans. Demonstrated understanding of instructions, follow-up care, 10:15 Patient left the ED. dd2 Signatures: Dispatcher [employer] EDRebel Jaime RN RN ll1 Marlin Serrano DIANA, RN RN dd2 Tiburcio Tsai, PROFESSOR OF ECONOMICS-C PROFESSOR OF ECONOMICS-Cdr5
[2024-12-02 12:37] VITALS: TEMP 98.6
[2024-12-02 12:38] VITALS: BP 138/79; O2SAT 99
== END 2024-12-02 10:15 | disposition home or self-care (01) ==
LOC: ER 09:05
DX: M79.672 Pain in left foot (principal)
CPT/HCPCS: 96372; 99284; J1885